=== PATIENT | female | born 1955 | race Caucasian/White ===

== ENCOUNTER 2023-10-31 08:56 | Emergency (ER) | payer MEDICARE, SELFPAY ==
[2023-10-31] VITALS (10 sets, daily range): BP systolic 106–139; BP diastolic 55–106; PULSE 67–102; RESP 14–24; TEMP 35.8–36.8; O2SAT 93–98; BMI 34.4
[2023-10-31] MEDS: Ondansetron 4 MG/2 ML Vial IV (09:15)
[2023-10-31] MEDS: HYDROmorphone 0.5 MG/0.5 ML SYRINGE IV (09:16)
--- NOTE | 2023-10-31 09:25 | RAD_ITS ---
STUDY: X-RAY - LEFT FOOT CLINICAL: Female, 67 years old. Fall TECHNIQUE: 2 view(s) of the foot. COMPARISON: None. FINDINGS: Calcaneal spurs.. Posterior dislocation of the tibial talar joint. Oblique fracture of the distal fibula. Normal visualized subtalar, talonavicular, calcaneocuboid, tarsal and tarsometatarsal articulations. Normal metatarsi. Normal metatarsophalangeal joint of the great toe. Normal tibial and fibular sesamoid bones. Normal interphalangeal joint of the great toe. Normal phalanges of the great toe. Normal second through fifth metatarsophalangeal joints. Normal interphalangeal joints and phalanges of the lesser toes. Soft tissue swelling. RAD/Foot 2 Views IMPRESSION: Posterior dislocation of the tibiotalar joint with soft tissue swelling. Oblique fracture of the distal fibula. Electronically Signed: Quentin Vivar MD at 10:14 EDT ,
--- NOTE | 2023-10-31 09:25 | RAD_ITS ---
STUDY: X-RAY - LEFT TIBIA AND FIBULA REASON FOR EXAM: Female, 67 years old. Pain following a recent fall. TECHNIQUE: 3 view(s) of the tibia and fibula were obtained. COMPARISON: None. FINDINGS: There is evidence of a displaced oblique fracture of the distal fibula with posterior subluxation of the tibial talar joint. Soft tissue swelling. RAD/Tibia & Fibula 2 Views IMPRESSION: Displaced oblique fracture of the distal fibula as well as disruption of the tibial talar joint with posterior subluxation. Soft tissue swelling. Electronically Signed: Quentin Vivar MD at 10:13 EDT ,
--- NOTE | 2023-10-31 09:25 | RAD_ITS ---
STUDY: X-RAY - LEFT ANKLE REASON FOR EXAM: Female, 67 years old. Fall TECHNIQUE: 2 view(s) of the ankle. COMPARISON: None. FINDINGS: Displaced oblique fracture of the distal fibula. Posterior dislocation of the tibiotalar articulation and disruption of the ankle mortise. Calcaneal spurs. The visualized subtalar, talonavicular, calcaneocuboid and tarsal articulations are normal. Soft tissue swelling. RAD/Ankle 2 Views IMPRESSION: Displaced oblique fracture of the distal fibula as well as posterior dislocation of the tibiotalar articulation and disruption of the ankle mortise. 2. Soft tissue swelling. Electronically Signed: Quentin Vivar MD at 10:15 EDT ,
--- NOTE | 2023-10-31 10:07 | NURSING ---
0940 NOT IN OFFICE 0943 LEFT MESSAGE ON PHONE [id number] FLIGHT RESERVATIONS MANAGER LEFT TEXT MESSAGE 1006 LEFT MESSAGE ON PHONE
--- NOTE | 2023-10-31 10:31 | EX.ED.DYSGE1 ---
HPI History of Present Illness Chief Complaint: Lower Extremity Injury Narrative Narrative: Patient is a 67-year-old female no known significant past medical history who presented to the emergency department chief complaint of left ankle pain. Patient states that she was letting a dog outside when she fell down and missed the step. States that she had immediate left ankle pain. States that she not hit her head did not pass out did not lose consciousness remembers entire event. Patient states that she did scrape on her right dorsal aspect of her foot but denies any pain over there. Rates her pain a 10 out of 10. Patient states that she last ate something at dinnertime last night did not eat breakfast. Does not know when her last tetanus shot was. [facility] Medical History Breast cyst Home Medications ?Medication ?Instructions ?Recorded ?Last Taken ?Type multivitamin 1 tab PO DAILY 10/01/23 Unknown History ascorbic acid (vitamin C) 1,000 mg 1,000 mg PO DAILY 30 days #30 tabs 10/31/23 Unknown Rx tablet,extended release (Vitamin C ER) calcium carbonate 500 mg-vitamin 1 tab PO DAILY 90 days #90 tabs 10/31/23 Unknown Rx D3 10 mcg (400 unit) tablet (Calcium 500 + D) cyclobenzaprine 5 mg tablet 5 mg PO TID PRN muscle spasm #14 10/31/23 Unknown Rx tabs docusate sodium 100 mg capsule 100 mg PO BID #30 caps 10/31/23 Unknown Rx (Colace) methylprednisolone 4 mg tablets in See Rx Instructions PO .COMPLEX 10/31/23 Unknown Rx a dose pack (Medrol (Rancho)) #21 tabs ondansetron 4 mg disintegrating 4 mg PO Q6H PRN nausea and 10/31/23 Unknown Rx tablet vomiting #20 tabs oxycodone-acetaminophen 5 mg-325 1 tab PO TID PRN pain 4 days #12 10/31/23 Unknown Rx mg tablet (Percocet) tabs Allergy/AdvReac Type Severity Reaction Status Date / Time No Known Allergies Allergy Verified 10/31/23 08:58 Family History Father Hyperlipemia Social History adopted: No household members: spouse number of children: 2 current occupational status: retired pets and animals: No sexually active: Yes Smoking Status: Never smoker alcohol intake: never substance use type: does not use caffeine: Yes (1) Type: carbonated beverages and tea frequency: 1-2 times per week seatbelt use: always do you feel safe at home: Yes ROS ROS ED ROS Narrative Constitutional: Denies any headaches, lightness, dizziness Eyes: Denies double vision blurry vision change in vision Cardiovascular: Denies chest pain or palpitations Respiratory: Denies cough shortness of breath Abdomen: Denies abdominal pain nausea vomit diarrhea Neurological: Denies numbness, weakness, tingling Musculoskeletal: Complains of left ankle pain as noted above Skin: Complains of scrapes to the dorsal aspect of the right foot as noted above and her left forearm and the dorsal aspect EXAM Physical Exam Narrative Exam Narrative: General: Patient lying in bed did appear to be uncomfortable Head: Atraumatic, normocephalic Eyes: PERRL bilateral, EOMI bilateral, no conjunctival injection noted Neck: Soft supple trachea midline Cardiovascular: Regular rate and rhythm no murmurs gallops rubs noted Respiratory: Clear to auscultation bilaterally no rales rhonchi wheeze noted Abdomen: Soft, nondistended, tender to palpation Musculoskeletal: Patient has obvious deformity to the left lower extremity in the ankle region Extremities: DP pulses +2/4 in the bilateral lower extremities, no pedal edema neuroexam Neurological: Patient following commands knew that she is at [facility] years 2023 sensation grossly intact Skin: Warm, dry, patient superficial abrasions noted to the dorsal aspect of the right foot and her left volar aspect of forearm no active bleeding Const Vital Signs: 10/31/23 08:58 10/31/23 09:56 10/31/23 10:35 Temperature 96.5 F L 97.8 F Temperature Source Temporal Pulse Rate 102 H 89 93 Pulse Rate [1 (Initial Baseline)] Pulse Rate [2] Pulse Rate [3] Pulse Rate [4] Pulse Rate [5] Pulse Rate [6] Respiratory Rate 18 16 17 Respiratory Rate [1 (Initial Baseline)] Respiratory Rate [2] Respiratory Rate [3] Respiratory Rate [4] Respiratory Rate [5] Respiratory Rate [6] Blood Pressure 138/67 H 127/70 H Blood Pressure [1 (Initial Baseline)] Blood Pressure [2] Blood Pressure [3] Blood Pressure [4] Blood Pressure [5] Blood Pressure [6] Blood Pressure Mean 90 Pulse Ox 98 98 97 Oxygen Delivery Method Room Air Room Air Nasal Cannula Oxygen Delivery Method [1 (Initial Baseline)] Oxygen Delivery Method [2] Oxygen Delivery Method [3] Oxygen Delivery Method [4] Oxygen Delivery Method [5] Oxygen Delivery Method [6] Oxygen Flow Rate (L/min) 3 Oxygen Flow Rate (L/min) [1 (Initial Baseline)] Oxygen Flow Rate (L/min) [2] Oxygen Flow Rate (L/min) [3] Oxygen Flow Rate (L/min) [4] Oxygen Flow Rate (L/min) [5] Oxygen Flow Rate (L/min) [6] 10/31/23 10:53 10/31/23 11:06 10/31/23 11:11 Temperature Temperature Source Pulse Rate Pulse Rate [1 (Initial Baseline)] 92 Pulse Rate [2] 91 Pulse Rate [3] 91 Pulse Rate [4] 91 Pulse Rate [5] 68 Pulse Rate [6] 73 Respiratory Rate Respiratory Rate [1 (Initial Baseline)] 14 Respiratory Rate [2] 15 Respiratory Rate [3] 19 H Respiratory Rate [4] 24 H Respiratory Rate [5] 17 Respiratory Rate [6] 18 Blood Pressure Blood Pressure [1 (Initial Baseline)] 127/70 H Blood Pressure [2] 139/80 H Blood Pressure [3] 132/74 H Blood Pressure [4] 112/82 H Blood Pressure [5] 112/87 H Blood Pressure [6] 115/90 H Blood Pressure Mean Pulse Ox Oxygen Delivery Method Nasal Cannula Nasal Cannula Oxygen Delivery Method [1 (Initial Baseline)] Nasal Cannula Oxygen Delivery Method [2] Nasal Cannula Oxygen Delivery Method [3] Nasal Cannula Oxygen Delivery Method [4] Nasal Cannula Oxygen Delivery Method [5] Nasal Cannula Oxygen Delivery Method [6] Nasal Cannula Oxygen Flow Rate (L/min) 4 2 Oxygen Flow Rate (L/min) [1 (Initial Baseline)] 3 Oxygen Flow Rate (L/min) [2] 4 Oxygen Flow Rate (L/min) [3] 4 Oxygen Flow Rate (L/min) [4] 4 Oxygen Flow Rate (L/min) [5] 4 Oxygen Flow Rate (L/min) [6] 4 10/31/23 12:00 Temperature Temperature Source Pulse Rate 67 Pulse Rate [1 (Initial Baseline)] Pulse Rate [2] Pulse Rate [3] Pulse Rate [4] Pulse Rate [5] Pulse Rate [6] Respiratory Rate 15 Respiratory Rate [1 (Initial Baseline)] Respiratory Rate [2] Respiratory Rate [3] Respiratory Rate [4] Respiratory Rate [5] Respiratory Rate [6] Blood Pressure 106/68 Blood Pressure [1 (Initial Baseline)] Blood Pressure [2] Blood Pressure [3] Blood Pressure [4] Blood Pressure [5] Blood Pressure [6] Blood Pressure Mean 80 Pulse Ox 94 Oxygen Delivery Method Room Air Oxygen Delivery Method [1 (Initial Baseline)] Oxygen Delivery Method [2] Oxygen Delivery Method [3] Oxygen Delivery Method [4] Oxygen Delivery Method [5] Oxygen Delivery Method [6] Oxygen Flow Rate (L/min) Oxygen Flow Rate (L/min) [1 (Initial Baseline)] Oxygen Flow Rate (L/min) [2] Oxygen Flow Rate (L/min) [3] Oxygen Flow Rate (L/min) [4] Oxygen Flow Rate (L/min) [5] Oxygen Flow Rate (L/min) [6] MDM MDM MDM Narrative Medical decision making narrative: Patient is a 67-year-old female who presented to the emerged part with chief complaint of mechanical fall with left ankle pain. Patient blood work performed here on the differential diagnose includes but not limited to to bimalleolar fracture, dislocation, trimalleolar fracture. Once workup is obtained reviewed she will be reevaluated. Patient be given Dilaudid, Zofran. Patient's x-ray of her ankle was reviewed and showed displaced oblique fracture of the distal fibula as well as posterior dislocation of the tibiotalar articulation and disruption of the ankle more T soft tissue swelling noted. Patient's foot x-ray showed the posterior dislocation of the tibiotalar joint once again and the oblique fracture of the distal fibula. Tibia-fibula showed the exact same thing no other no other acute findings. Patient underwent procedural sedation see procedure note for separate details no complications noted. Patient tolerated this well. Splint was applied. Patient had Webril applied to the left lower extremity followed by plaster and a Eddy wrap afterwards. Patient remained neurovascularly intact after splint application. Did discuss the case with on-call foot and ankle surgeon Dr. Merritt who came down and evaluated the patient at bedside. He reviewed the images and states that the reduction looked adequate. I did review the postreduction films and showed a satisfactory reduction as well. Per Dr. Merritt's recommendations he was requesting prescriptions be sent for Percocet, cyclobenzaprine, vitamin C, Medrol Dosepak, aspirin daily, vitamin C, Colace, Os-Masood which were all sent to her the pharmacy. She was encouraged to follow-up with him on Friday he wants to see the patient in the office. She was encouraged to remain nonweightbearing on that extremity. She is encouraged return with worsening symptoms or any concerns. Patient was observed post sedation here and has had no complications and is back to her baseline feeling well. She is agreeable this plan all question concerns answered she was discharged home in stable condition. Radiography Diagnostic Testing: Clinical Impression(s) from Imaging Studies Ankle X-Ray 10/31/23 09:25 IMPRESSION: Displaced oblique fracture of the distal fibula as well as posterior dislocation of the tibiotalar articulation and disruption of the ankle mortise. 2. Soft tissue swelling. Electronically Signed: Quentin Vivar MD at 10:15 EDT , Foot X-Ray 10/31/23 09:25 IMPRESSION: Posterior dislocation of the tibiotalar joint with soft tissue swelling. Oblique fracture of the distal fibula. Electronically Signed: Quentin Vivar MD at 10:14 EDT , Tibia/Fibula X-Ray 10/31/23 09:25 IMPRESSION: Displaced oblique fracture of the distal fibula as well as disruption of the tibial talar joint with posterior subluxation. Soft tissue swelling. Electronically Signed: Quentin Vivar MD at 10:13 EDT , Ankle X-Ray 10/31/23 11:05 IMPRESSION: Satisfactory reduction. Electronically Signed: Quentin Vivar MD at 11:47 EDT , Procedures Procedural Sedation reduction: Consent Signed: Yes Any Problems With Anesthesia: No You/Your family experience fever (hyperthermia) w/anesthesia: No Sedation medication: Propofol Dose: 60 Route: IV Total Moderate Sedation Units: 14 Maliampati Score: Class II ASA Classification: I Comment:: no complications Discharge Plan Triage Chief Complaint: Lower Extremity Injury ED Provider: Juan Corona Dx/Rx/DC Orders Clinical Impression: Fibula fracture, Closed dislocation of ankle Prescriptions: New oxycodone-acetaminophen [Percocet] 5-325 mg tablet 1 tab PO TID PRN (Reason: pain) 4 Days Qty: 12 0RF methylprednisolone [Medrol (Rancho)] 4 mg tablets,dose pack See Rx Instructions .ROUTE .COMPLEX Qty: 21 0RF Rx Instructions: for 6 days ondansetron 4 mg tablet,disintegrating 4 mg PO Q6H PRN (Reason: nausea and vomiting) Qty: 20 0RF cyclobenzaprine 5 mg tablet 5 mg PO TID PRN (Reason: muscle spasm) Qty: 14 0RF Vitamin C 1,000 mg tablet extended release 1,000 mg PO DAILY 30 Days Qty: 30 0RF calcium carbonate-vitamin D3 [Calcium 500 + D] 500 mg-10 mcg (400 unit) tablet 1 tab PO DAILY 90 Days Qty: 90 0RF docusate sodium [Colace] 100 mg capsule 100 mg PO BID Qty: 30 0RF No Action multivitamin Tablet 1 tab PO DAILY Primary Care Provider: Greg Zavala Referrals: Greg Zavala PA [Primary Care Provider] - Eldon Merritt DPM [[facility] Staff - Active Staff] - Activity Restrictions/Additional Instructions: Use Tylenol and ibuprofen [id number] for pain control. Take aspirin daily 81 mg. Follow-up with Dr. Merritt in the outpatient setting. Use the other medications for severe pain as we discussed here. Return with worsening symptoms or any other concerns. Print Language: [place] Citizen Disposition Disposition: Home, Self Care
--- NOTE | 2023-10-31 10:51 | NURSING ---
1021 DR OLIVEIRA IN SURGERY 1058 SENT TO PHONE. NO ANSWER
--- NOTE | 2023-10-31 11:05 | RAD_ITS ---
STUDY: X-RAY - LEFT ANKLE REASON FOR EXAM: Female, 67 years old. Post reduction TECHNIQUE: 3 view(s) of the ankle. COMPARISON: Comparison made with prior study done earlier today. FINDINGS: Satisfactory reduction of the distal fibular fracture as well as the tibial talar joint. RAD/Ankle min 3 Views IMPRESSION: Satisfactory reduction. Electronically Signed: Quentin Vivar MD at 11:47 EDT ,
[2023-10-31] MEDS: Propofol 200 MG/20 ML Vial IV BOLUS (11:11)
[2023-10-31] MEDS: fentaNYL 100 MCG/2 ML Ampul 50 MCG IV (11:12)
--- NOTE | 2023-10-31 11:12 | NURSING ---
DR OLIVEIRA IN ROOM
== END 2023-10-31 13:56 | disposition home or self-care (01) ==
PROVIDERS: Emergency Provider Emergency Medicine; PCP Physician Assistant; Visit Provider Emergency Medicine
DX: S82.432A Displaced oblique fracture of shaft of left fibula, initial encounter for closed fracture (principal); W10.9XXA Fall (on) (from) unspecified stairs and steps, initial encounter
CPT/HCPCS: 73590; 73600; 73610; 73620; 96374; 96375; 96376; 99152; 99283; J7030; A4216; J2405

== ENCOUNTER → 2023-11-17 | Outpatient (CLI) | payer MEDICARE, SELFPAY ==
--- NOTE | 2023-11-17 14:56 | CT_ITS ---
EXAM: CT LEFT LOWER EXTREMITY WITHOUT INTRAVENOUS CONTRAST, ANKLE CLINICAL INDICATION: LT ANKLE FRACTURE TECHNIQUE: Helically acquired images were obtained of the left ankle without intravenous contrast. 2-D reformats were performed by the technologist. CTDIvol = ( 15.35 ) mGy, DLP = ( 465.06 ) mGycm This CT exam was performed using one or more of the following dose reduction techniques: automated exposure control, adjustment of the mA and/or kV according to patient size, and/or use of iterative reconstruction technique. COMPARISON: October 31, 2023 exam FINDINGS: BONES/JOINTS: Acute nondisplaced fracture involving the metaphysis of the distal fibula. There is a remote osteochondral lesion/lucency measuring 4 mm at the medial talar dome. There there is a mildly displaced acute comminuted fracture at the medial malleolus. Ankle mortise appears intact. Small old fracture fragments which are corticated and located near the the inferior process of the medial malleolus. No dislocation. SOFT TISSUES: Unremarkable. No soft tissue swelling or gas. No radiopaque foreign body. CT/Extremity Lower without Contra IMPRESSION: 1. Acute nondisplaced fracture involving the metaphysis of the distal fibula. 2. Mildly displaced acute comminuted fracture at the medial malleolus. 3. Old osteochondral defect at the medial talar dome. Electronically Signed: Lamont Keane MD at 0:19 EDT ,
== END | disposition home or self-care (01) ==
PROVIDERS: PCP Physician Assistant; Referring Provider Podiatrist Foot & Ankle Surgery; Visit Provider Podiatrist Foot & Ankle Surgery
DX: S82.62XA Displaced fracture of lateral malleolus of left fibula, initial encounter for closed fracture (principal)
CPT/HCPCS: 73700

== ENCOUNTER 2023-11-24 10:57 | Outpatient (CLI) | payer MEDICARE, SELFPAY ==
[2023-11-24 12:08] LABS: Absolute Lymphocyte Count 2.06 X10^3/uL (0.83-4.51); Basophil# 0.03 X10^3/uL; Basophil% 0.5 % (0-1); Eosinophils% 1.7 % (0-5); Hematocrit 41.6 % (37-47); Hemoglobin 13.3 g/dL (12.0-15.0); Lymphocyte # 2.06 X10^3/ul (0.83-4.51); Lymphocyte % 34.6 % (19-41); Mean Corpuscular Hgb 29.8 pg (27.0-32.0); Mean Corpuscular Volume 93.1 fL (81-99); Monocyte% 11.8 % (0-10); NRBC Flagged by Analyzer 0 % (0-5); Neutrophil # 3.02 X10^3/uL (2.7-7.7); Neutrophil % 50.7 % (47-70); Platelet Count 317 K/mm3 (150-450); RBC Distribution Width CV 13.5 % (11.6-14.6); RBC Distribution Width SD 46.3 fl (35.1-43.9); Red Blood Count 4.47 M/mm3 (4.2-5.4)
[2023-11-24 13:06] LABS: ALB/GLOB Ratio 1.1 RATIO (0.9-2.4); AST(SGOT) 20 U/L (15-37); Alanine Aminotransfer ALT/SGPT 27 U/L (13-56); Albumin, Serum 4.1 g/dL (3.2-5.0); Alkaline Phosphatase 75 U/L (45-117); Anion Gap 7 (5-15); BUN 20 mg/dL (7-18); BUN/Creat Ratio 19.2 RATIO (10-20); Calcium,Total 9.6 mg/dL (8.5-10.1); Chloride 104 mmol/L (98-107); Cholesterol 238 mg/dL (200); Creatinine, Serum 1.04 mg/dL (0.55-1.02); EST Glomerular Filtration Rate 56 mL/min (>60); Est Glom Filt Rate - Afr Amer 68 mL/min (>60); Globulin 3.6 g/dL (2.2-4.2); Glucose 100 mg/dL (74-106); High Density Lipoprotein 44 mg/dL; Potassium 4.2 mmol/L (3.5-5.1); Protein, Total 7.7 g/dL (6.4-8.2); Sodium Level 139 mmol/L (136-145); Triglycerides 194 mg/dL; Very Low Density Lipoprotein 39 mg/dL (5-40)
== END 2023-11-24 23:59 | disposition home or self-care (01) ==
PROVIDERS: PCP Physician Assistant; Referring Provider Physician Assistant; Visit Provider Physician Assistant
DX: E66.9 Obesity, unspecified (principal); Z68.34 Body mass index [BMI] 34.0-34.9, adult
CPT/HCPCS: 36415; 80053; 80061; 85025

== ENCOUNTER 2023-11-28 09:00 | Day surgery (SDC) | payer MEDICARE, SELFPAY ==
[2023-11-24 12:58] LABS: Vitamin D,25 Hydroxy 30.6 ng/mL
[2023-11-24 13:32] LABS: Magnesium 2.2 mg/dL (1.6-2.6)
[2023-11-24 14:13] LABS: Hemoglobin A1c 5.8 % (3.8-5.6)
[2023-11-28] VITALS (11 sets, daily range): BP systolic 116–137; BP diastolic 68–102; PULSE 69–92; RESP 12–18; TEMP 36.1–36.6; O2SAT 93–100; BMI 31.0
--- NOTE | 2023-11-28 09:26 | PCM.PRE.AN2 ---
ASA Classification* ASA Classification ASA Classification: 2 Assessment & Plan Anesthesia* Anesthesia Assessment Anesthesia Assessment: Discussed sedation and/or anesthesia options, risks, benefits, and alternatives with patient/parents/legal guardian/POA. Questions invited. The patient/parents/legal guardian/POA seems to understand and agrees to proceed with anesthesia plan. Reviewed the physical assessment, medical history, allergy history and patient home medications list prior to surgery/procedure/anesthetic and documented any changes. Performed airway and anesthesia risk assessments. Anesthesia Type Anesthesia Type: General (see written pre anesthesia record for full assessment) and Block (see written pre anesthesia record for full assessment) Anesthesia Focused Assessment* Airway Assessment Mouth opens: >3 cm Mallampati Score: II Focused Labs Anesthesia Preop lab: CBC WBC 6.0 K/mm3 (4.4-11.0) 11/24/23 11:00 RBC 4.47 M/mm3 (4.2-5.4) 11/24/23 11:00 Hgb 13.3 g/dL (12.0-15.0) 11/24/23 11:00 Hct 41.6 % (37-47) 11/24/23 11:00 Plt Count 317 K/mm3 (150-450) 11/24/23 11:00 CHEMISTRY Potassium 4.2 mmol/L (3.5-5.1) 11/24/23 11:00 Sodium 139 mmol/L (136-145) 11/24/23 11:00 Magnesium 2.2 mg/dL (1.6-2.6) 11/24/23 11:00 BUN 20 mg/dL (7-18) H 11/24/23 11:00 Creatinine 1.04 mg/dL (0.55-1.02) H 11/24/23 11:00 Glucose 100 mg/dL (74-106) 11/24/23 11:00 COAG Pre-Assessment Diagnosis/Proposed Procedure Planned Operative Procedure(s): (L) ORIF left ankle fracture with stress views and syndesmotic repair Anesthesia History Anesthesia History - community marketing manager: Anesthesia History - community marketing manager Hx Hospitalization No 11/21/23 11:07 Any Problems With Anesthesia [ No 10/31/23 13:15 reduction] Any Problems With Anesthesia No 11/21/23 11:07 Cholinesterase deficiency No 11/21/23 11:07 You/Your Family Experience No 11/21/23 11:07 fever (hyperthermia) with Relationship Recent Exposure to Contagious Disease Does patient have nerve No 11/21/23 11:07 stimulator Patient instructed to have device shut off --Does patient have Pacemaker or ICD? When Was Last Pacemaker Check QUESTION #4 FULL TEXT: You/Your Family Experience fever (hyperthermia) with Anesthesia Last Oral Intake Last Oral intake: Last Oral Intake NPO since Meds taken in AM with sips of water? Meds patient instructed to take am of surgery PONV PONV - community marketing manager: PONV - community marketing manager Female Yes 11/21/23 11:07 HX of Motion Sickness No 11/21/23 11:07 HX of N/V After Surgery No 11/21/23 11:07 Non-Smoker Yes 11/21/23 11:07 Duration of Surgery greater Yes 11/21/23 11:07 than 60 minutes Number of Risk Factors 3 11/21/23 11:07 PONV Score Moderate Risk 11/21/23 11:07 Height & Weight Height & Weight: Anesthesia: Height & Weight Height 5 ft 7 in 11/27/23 09:28 Weight: 89.811 kg 11/27/23 09:28 Respiratory Assessment Respiratory Assessment - community marketing manager: Respiratory Tract Infection Hx - community marketing manager Hx Respiratory Tract Infection No 11/21/23 11:07 STOP Sleep Apnea STOP Sleep Apnea - community marketing manager: STOP Sleep Apnea - community marketing manager Hx Hypertension No 11/21/23 11:07 Hx Sleep Apnea No 11/21/23 11:07 CPAP BIPAP Do you snore loudly (louder No 11/21/23 11:07 than talking or can be heard Do you often feel tired/ No 11/21/23 11:07 fatigued/ sleepy during daytime? Has anyone observed you stop No 11/21/23 11:07 breathing during sleep? STOP Results Negative 11/21/23 11:07 QUESTION #5 FULL TEXT : Do you snore loudly (louder than talking or can be heard through closed doors)? Tobacco Use History Tobacco Use History - community marketing manager: Tobacco Use History - community marketing manager Tobacco Use Smoking Status Never smoker 11/21/23 11:07 Hx Tobacco Use No 11/21/23 11:07 Years Smoking Packs Smoked per Day Smoking Cessation Date was within the last 15 years Hx Smoking Cessation Date Hx Smoking Cessation Counseling Hematologic Medial History Hematologic Hx - community marketing manager: Hematologic Medical Hx - city dispatcher Hx of Blood Transfusion No 11/21/23 11:07 Hx of Transfusion in last 3 No 11/21/23 11:07 Months Date of Last Transfusion (if within last 3 months) Ever experience any problems No 11/21/23 11:07 with transfusion(s)? Specify any problems Hx of Preganancy in last 3 N/A 11/21/23 11:07 Months Nurse Filling Out Transfusion NBUCHER 11/21/23 11:07 & Questions: Date: 11/21/23 11/21/23 11:07 Time: 11:07 11/21/23 11:07 Patient unable to answer at this time (ie. confused, unrespo /Reproduction History /Reproductive History - community marketing manager: /Reproductive Hx- community marketing manager Hx Now No 11/21/23 11:07 Gestational Age (in weeks): EDC: Hx Hx Para Hx Section SAB No 11/21/23 11:07 Active Medications Active Medications: Current Medications Generic Name Dose Route Start Last Admin Trade Name Freq PRN Reason Stop Dose Admin Acetaminophen 1,000 mg 11/28/23 10:30 Acetaminophen 500 Mg Tablet PO 11/28/23 10:31 X1 ONE Gabapentin 600 mg 11/28/23 10:30 Gabapentin 600 Mg Tablet PO 11/28/23 10:31 X1 ONE Cefazolin Sodium 2 gm/ Sodium 110 mls @ 150 mls/hr 11/28/23 10:30 Chloride IV 11/28/23 11:13 PREOP ONE Magnesium Sulfate 1 gm/ 102 mls @ 408 mls/hr 11/28/23 10:30 Dextrose IV 11/28/23 10:44 X1 ONE Lactated Ringer's 1,000 mls @ 15 mls/hr 11/28/23 09:15 IV .Q48H CLAU Insulin Human Lispro 1 - 6 unit 11/28/23 10:30 Insulin Lispro 100 Unit/Ml Insuln.Pen SC 11/28/23 18:00 Q4H PRN PRN BG>/= 180, SEE PROTOCOL Protocol PFSH Medical History Wears hearing aid Loss of hearing Wears dentures Arthritis Non-smoker Breast cyst Home Medications ?Medication ?Instructions ?Recorded ?Last Taken ?Type multivitamin 1 tab PO DAILY 10/01/23 Unknown History ascorbic acid (vitamin C) 1,000 mg 1,000 mg PO DAILY 30 days #30 tabs 10/31/23 Unknown Rx tablet,extended release (Vitamin C ER) calcium 500 mg (as 1 tab PO DAILY 90 days #90 tabs 10/31/23 Unknown Rx carbonate)-vitamin D3 10 mcg (400 unit) tablet (Calcium 500 + D) Allergy/AdvReac Type Severity Reaction Status Date / Time No Known Allergies Allergy Verified 11/21/23 10:56 Family History Father Hyperlipemia Social History adopted: No household members: spouse number of children: 2 current occupational status: retired pets and animals: No sexually active: Yes Smoking Status: Never smoker alcohol intake: never substance use type: does not use caffeine: Yes (1) Type: carbonated beverages and tea frequency: 1-2 times per week seatbelt use: always do you feel safe at home: Yes Review of Systems (Anesthesia) ROS Narrative System reviewed and no additional complaints, except as documented.
--- NOTE | 2023-11-28 09:30 | RAD_ITS ---
STUDY: X-RAY - LEFT ANKLE REASON FOR EXAM: Female, 67 years old. ORIF LEFT ANKLE TECHNIQUE: 3 limited intraoperative view(s) of the ankle. COMPARISON: None. FINDINGS: 3 limited intraoperative views were obtained as the patient is undergoing open reduction internal fixation of a bimalleolar left ankle fracture. Alignment at the fracture sites is anatomic, follow-up recommended to a complete osseous union RAD/Ankle 2 Views IMPRESSION: No intraoperative complications noted during open reduction internal fixation of a left ankle fracture. Follow-up recommended to assure complete osseous union Electronically Signed: Ramses Meyer MD at 19:37 EDT ,
[2023-11-28] MEDS: Magnesium 1 GM over 15 mins IV (09:50)
[2023-11-28] MEDS: Lactated Ringers 1,000 ML 15 ML IV (09:50)
[2023-11-28] MEDS: Gabapentin 600 MG Tablet PO (09:50)
[2023-11-28] MEDS: Acetaminophen 500 MG Tablet 1000 MG PO (09:51)
[2023-11-28] MEDS: Insulin Lispro 100 UNIT/ML INSULN.PEN SC (10:16)
[2023-11-28 10:37] LABS: Bedside Glucose 182 mg/dL (74-106)
--- NOTE | 2023-11-28 10:39 | OP.PCM_ITS ---
Problems Associated Problem List Diagnoses (1) Displaced fracture of lateral malleolus of left fibula, initial encounter for closed fracture: (2) Subluxation of left ankle joint, initial encounter: (3) Dislocation of left ankle joint, initial encounter: (4) Pain in left leg: Report of Operation Date of Procedure: 11/28/23 Pre-Operative Diagnosis: 1. Dislocated ankle fracture, left lower extremity plan 2. Subluxation of ankle, left lower extremity 3. Dislocated ankle fracture, left lower extremity 4. Pain, left leg Post-Operative Diagnosis: Same as preoperative diagnosis Surgery/Procedure Performed:: 1. Open reduction internal fixation, left ankle fracture 2. Stress views, left ankle 3. Repair of syndesmosis, left ankle Description of Surgical Findings:: 1. Mildly superior dislocation of the capital fragment of the distal fibula, left lower extremity. Next line 2. Had a rebreak the capital fragment of the fibula to allow the capital fragment to be out to length. Once out the length lobster claws were used to realign the oblique fracture. 3. Anatomic reduction of left lower extremity ankle fracture. Surgeon: Eldon Merritt environmental field office manager: Pamella Bliss Type of Anesthesia: Block,Regional, General and Local Anesthesiologist: Armando Tucker Special Medications: 1. Popliteal block provided by anesthesia, left lower extremity Specimen's removed: None Drains: None Estimated Blood Loss (mL): 15 mL Fluids Replaced: 600 mL Description of Procedure: Indications For Operation: Mrs. Olivia is a 67-year-old female who was admitted to [facility] for left lower extremity open reduction internal fixation ankle fracture. Patient was initially seen in the emergency department where she ended up with a dislocated ankle fracture to left lower extremity approximately 3-1/2 weeks ago. Patient was closed reduced using conscious sedation. After reduction the patient was placed in a AO splint and reported to my office for consultation evaluation. Due to the nature of the dislocated ankle it would was educated to the patient that she would need to move forward with open reduction total fixation to allow for anatomic healing of the left lower extremity ankle and foot. Surgical consultation in office was obtained, chart review and consent was signed. Due to initial presentation of the dislocated ankle fracture to left lower extremity it was deemed necessary to take the patient back to the operating room and to perform the above procedure to fix her left ankle fracture and syndesmosis. The nature of the problem, anticipated procedures, postop recovery/convalences and risk/complications include but not limited to infection, wound healing complications, digital amputation, hypertrophic scarring, numbness, tingling, chronic pain, CRPS, over and under correction, recurrence of deformity, DVT and or PE and the need for further surgery have been discussed in great detail with the patient. All questions have been answered to the patient's satisfaction. There are no guarantees given as to the outcome of the procedure. Description of Procedure: Under mild sedation, the patient was brought into the operating room and placed on the operating table in supine position. Once the patient was under general anesthesia with laryngeal mask airway, the left lower extremity was blocked using approximately 10 cc0.5% Marcaine plain to the left lower extremity saphenous nerve, popliteal block was performed by anesthesia please see anesthesia notes for further detail. Next, a well-padded thigh tourniquet was applied to the left lower extremity. Next, the left lower extremity was prepped and draped in normal aseptic manner. Next, a timeout was then undertaken verifying the correct patient, extremity, visibility of preoperative markings, availability of the equipment. Next, attention was directed to the left lower extremity. Using a 6 inch Esmarch, left lower extremity was exsanguinated and elevated to 60 degrees for 1 minute. 1. Open reduction internal fixation, left ankle fracture Next, attention was directed to the left lower extremity. Using large C-arm fluoroscopy, the ankle joint syndesmosis and fibula were marked out prior to incision. Once all landmarks were obtained, a large full-thickness incision down to bone to the lateral ankle over the fibula was performed. Continued sharp dissection was carried down the distal and proximal aspect of the fracture line to the fibula. The fracture line was identified and showed evidence of superior translation. There is evidence of trabeculation across the fracture site however there was evidence of superior dislocation and a deemed necessary at this time to rebreak the fracture line to move the distal fibula back to a more anatomic position and get it out to length. Using an osteotome and mallet the healing fracture was rebroken and a [place] elevator was used to dislocate the distal capital fragment. The rebroken distal fibula was flushed with coping vickey of normal saline. Using lobster claws, the fracture line was reapproximated down to anatomic position allowing for good apposition prior to interfrag screw. Using [employer] hardware a 2.7 millimeter screw was placed perpendicular to the fracture line using AO technique. Next, using [employer] ankle fracture set, a large anatomical plate was placed on the fibula and position was checked not just clinically but with large C-arm fluoroscopy. The plate was held in place with threaded BB tacks. A combination of 3.5 mm locking and nonlocking screws were placed distal and proximal to the fracture line. Next, the incision was flushed with copious normal saline. 2. Stress views, left ankle Next, stress views were obtained of the left lower extremity using large live C arm fluoroscopy. Dorsiflexion external rotating the ankle showed evidence of gapping of the syndesmosis. Due to this evidence we will move forward with syndesmotic repair. 3. Repair of syndesmosis, left ankle Next, using a smooth large Steinmann pin, the guide hole for the tight rope was obtained throwing the large smooth Steinmann pin from posterior lateral to anterior medial. Positioning of the Steinmann pin was confirmed with large C- arm fluoroscopy and lateral view that the Steinmann pin was in the middle of the tibia at this time. A type rope was placed per the order desk clerk's recommendation with the rep in the room. There was evidence of realignment of the tibial fibular joint that was noted on the operating room table. Next, the incision on the lateral and medial side were flushed with copious normal saline. The ankle was placed through range of motion and showed no evidence of catching and showed only evidence of gliding with no concern of hardware in the joint. Dorsiflexion external rotation was obtained and normal tib-fib overlap was noted. The medial incision skin was reapproximated closed using 3-0 nylon in simple interrupted suture technique. The deep layer on the lateral incision was reapproximated closed with buried 3-0 Monocryl. The left thigh tourniquet was deflated at this time and reperfusion was instantly noted to the left lower extremity. Subcutaneous layer was reapproximated closed using 3-0 Monocryl and running suture technique. The skin was reapproximated and closed with sahara. Next, 2 cc of via flow was injected into the incision to help with inflammation and decrease adhesions. The left lower extremities were cleaned and patted dry. All incisions were dressed with Betadine soaked Adaptic, dry sterile dressing and double layer Pavon AO splint at 90 degrees was applied to left lower extremity. The patient tolerated the procedure and anesthesia well and apparent satisfactory condition and was transported to the PACU for further monitoring prior to discharge home. Vital signs stable and vascular status intact to all digits bilateral. Post Operative Plan: Weightbearing: Nonweightbearing to left lower extremity with assistive knee sc ooter. Full weightbearing right lower extremity. Antibiotics: 2 g Ancef through the IV DVT Prophylaxis: 81 mg aspirin Alston: None Dressing: Betadine soaked Adaptic, for dry sterile dressing, double layer Pavon AO splint to left lower extremity at 90 degrees. X-Rays: Post-operative films taken on the operating room. Pain Medication: Percocet 5/325. Flexeril 10 mg Follow-up: Patient will follow-up 1 week post discharge in private office with Dr. Merritt. Grafts/Implants Used: Right medical ankle fracture set with syndesmotic ropes. 2cc viaflow Complications None Admit VTE Documentation VTE Present on Admission: No VTE Mechan Device Prophylaxis: SCD's VTE Pharm Prophylaxis ordered?: Yes
[2023-11-28] MEDS: Cefazolin 2 GM in 0.9% Normal Saline (100mL Bag) 100 ML IV (10:40)
[2023-11-28] MEDS: Bupivacaine Mpf 0.5% 30 ML VIAL (12:20)
--- NOTE | 2023-11-28 12:34 | PCM.POST.ANE ---
Anesthesia: Postop Eval I Current Vital Signs Temperature: 97 F Pulse Rate: 86 Blood Pressure: 122/68 Respiratory Rate: 16 Pulse Ox: 95 Oxygen Delivery Method: Room Air Assessment Airway patent: Yes Spontaneous unlabored respirations: Yes Mental status: Awake and Calm nausea: No Vomiting: No Anesthesia Complication: No Fluid Hydration Crystalloid volume administer (ml): 600 Total IV fluid infused: 600 Progress Note Anesthesia document: Postop Eval 1 completed: Yes
[2023-11-28 14:01] LABS: Bedside Glucose 109 mg/dL (74-106)
--- NOTE | 2023-11-28 14:30 | POSTOPAN2_ITS ---
Anesthesia Postop Eval I Sum Postop Eval Completion status Anesthesia document: Postop Eval 1 completed: Yes Anesthesia Postop Eval I Summary Anesthesia Postop Eval I Summary: Anesthesia Postop Eval I: Assessment Summary Airway patent Yes 11/28/23 12:35 TIRE BUILDER [email or web address] [email or web address] Spontaneous unlabored Yes 11/28/23 12:35 TIRE BUILDER [employer] [email or web address] respirations Mental status Awake,Calm 11/28/23 12:35 TIRE BUILDER HEAV[employer] [email or web address] nausea No 11/28/23 12:35 TIRE BUILDER HEAV[employer] [email or web address] Vomiting No 11/28/23 12:35 TIRE BUILDER HEAVY [email or web address] Anesthesia Postop Eval I: Fluid Summary Crystalloid volume administer 600 11/28/23 12:35 TIRE BUILDER [email or web address] [email or web address] (ml) Colloids volume administered ( ml) Blood Product volume administered (ml) Total IV fluid infused 600 11/28/23 12:35 TIRE BUILDER [email or web address] [email or web address] Anesthesia Postop Eval I: Summary Notes Anesthesia Complication No 11/28/23 12:35 TIRE BUILDER [email or web address] [email or web address] Anesthesia Complication Comment: Post-operative progress note Anesthesia: Postop Eval II Evaluation Mental status: Awake Pain Level: 0 nausea: No Vomiting: No
--- NOTE | 2023-11-28 14:30 | PCM.POSTANE2 ---
Anesthesia Postop Eval I Sum Postop Eval Completion status Anesthesia document: Postop Eval 1 completed: Yes Anesthesia Postop Eval I Summary Anesthesia Postop Eval I Summary: Anesthesia Postop Eval I: Assessment Summary Airway patent Yes 11/28/23 12:35 INVESTMENT [email or web address] Spontaneous unlabored Yes 11/28/23 12:35 INVESTMENT [email or web address] respirations Mental status Awake,Calm 11/28/23 12:35 INVESTMENT [email or web address] nausea No 11/28/23 12:35 INVESTMENT [email or web address] Vomiting No 11/28/23 12:35 INVESTMENT [email or web address] Anesthesia Postop Eval I: Fluid Summary Crystalloid volume administer 600 11/28/23 12:35 INVESTMENT [email or web address] (ml) Colloids volume administered ( ml) Blood Product volume administered (ml) Total IV fluid infused 600 11/28/23 12:35 INVESTMENT [email or web address] Anesthesia Postop Eval I: Summary Notes Anesthesia Complication No 11/28/23 12:35 INVESTMENT [email or web address] Anesthesia Complication Comment: Post-operative progress note Anesthesia: Postop Eval II Evaluation Mental status: Awake Pain Level: 0 nausea: No Vomiting: No
== END 2023-11-28 16:11 | disposition home or self-care (01) ==
LOC: SDC 09:13 → AC 09:13
PROVIDERS: PCP Physician Assistant; Referring Provider Podiatrist Foot & Ankle Surgery; Visit Provider Podiatrist Foot & Ankle Surgery
PROC: (CPT 27792; principal; 2023-11-28 10:10)
DX: S82.62XA Displaced fracture of lateral malleolus of left fibula, initial encounter for closed fracture (principal); S93.02XA Subluxation of left ankle joint, initial encounter; W19.XXXA Unspecified fall, initial encounter; E66.9 Obesity, unspecified; Z68.29 Body mass index [BMI] 29.0-29.9, adult
CPT/HCPCS: 27792; 27829; 01480; 64447; 73600; 76000; 80307; 82306; 82962; 83036; 83735; C1713; J7120; J2405; J3475

== ENCOUNTER → 2024-11-12 | Outpatient (CLI) | payer MEDICARE, SELFPAY ==
--- NOTE | 2024-11-12 06:12 | CT_ITS ---
PROCEDURE: EXTREMITY LOWER WITHOUT CONTRA 11/12/2024 REASON FOR EXAM: PAIN DUE TO INTERNAL ORTHOPEDIC PROSTHETIC DEVICES, IMPLANTS AND TECHNIQUE: Procedure Code: CTELWO Modality: CT Procedure: EXTREMITY LOWER WITHOUT CONTRA Coronal and Sagittal reconstruction series were provided. CONTRAST: None One or more dose reduction techniques were used (e.g., Automated exposure control, adjustment of the mA and/or kV according to patient size, use of iterative reconstruction technique). RADIATION DOSE SUMMARY: DLP: 408 mGycm COMPARISON: November 17, 2023 FINDINGS: There is hardware fixation of the distal fibula with plate and screws which appear intact and aligned. A cortex is well corticated. There is a 0.5 cm corticated osteochondral fragment in the medial joint space at the deltoid. No acute fracture or dislocation is identified. 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 Benign-appearing calcaneal spurs are noted. The Achilles shadow appears intact. No soft tissue mass or adenopathy is identified. There is no visible atherosclerosis. CT/Extremity Lower without Contra IMPRESSION: The distal fibula fracture appears well corticated, with intact hardware. Reading Location: [facility]
--- OUTSIDE RECORDS SUMMARY | 2024-11-12 06:22 | XMS RPT_ITS | CCD ---
Author Organization [facility] CliniSyny Care Team Providers Care Radiology Supervisor Name Role Phone MALCOM CHAUHAN, DR HURST Primary Care Physician [phone] MALCOM CHAUHAN, DR HURST Attending Unavailable MALCOM DO, DR HURST Primary Care Unavailable LEONCIO PEOPLESOFT HR DEVELOPER-HEAT TREAT FURNACE OPERATOR, CARLOTA Weller Attending Unavai lable MALCOM DO, DR HURST Primary Care Unavailable LEONCIO PEOP[place]OFT HR DEVELOPER-HEAT TREAT FURNACE OPERATOR, CARLOTA Weller Attending Unavai lable MALCOM DO, DR HURST Primary Care Unavailable MALCOM DO, DR HURST Attending Unavailable MALCOM DO, DR HURST Primary Care Unavailable MALCOM DO, DR HURST Attending Unavailable MALCOM DO, DR HURST Primary Care Unavailable Wayt PA, Greg Primary Care Unavailable Wayt PA, Greg Attending Unavailable Wayt PA, Greg Referring Unavailable MerrittEldon Attending Unavailable MerrittEldon Referring Unavailable Wayt PA, Greg Primary Care Unavailable MerrittEldon Referring Unavailable MerrittEldon Attending Unavailable Wayt PA, Greg Primary Care Unavailable Eldon Merritt Attending Unavailable Wayt PA, Greg Primary Care Unavailable MerrittEldno Referring Unavailable Wayt PA, Greg Primary Care Unavailable Wayt PA, Greg Attending Unavailable Wayt PA, Greg Referring Unavailable Wayt PA, Greg Primary Care Unavailable Wayt PA, Greg Attending Unavailable Wayt PA, Greg Referring Unavailable MerrittEldon Attending Unavailable Wayt PA, Greg Primary Care Unavailable MerrittEldon Referring Unavailable Medications Current Medications Medication Drug Class(es) Dates Sig (Normalized) Sig (Original) Multivitamin preparation (4 sources) Start: 12-05-2022 take 1 tablet by mouth once daily Multivitamin Dose = 1 tab(s), Oral, Daily, 0 Refill(s) Start Date: 12/05/22 Status: Ordered Problems Active Problems Problem Classification Problem Date Documented Da te Episodic/Chronic Complication of device; implant or graft (1 source) Pain due to internal orthopedic prosthetic devices, implants and grafts, initial encounter; Translations: [Pain due to internal orthopedic prosthetic devices, implants and grafts, initial encounter] Onset: 11-05-2024 Episodic Nonmalignant breast conditions (2 sources) Breast lump 01-14-2023 Episodic Other connective tissue disease (1 source) Pain in right leg; Translations: [Pain in right leg] Onset: 11-04-2024 Episodic Other connective tissue disease (1 source) Neuralgia and neuritis, unspecified; Translations: [Neuralgia and neuritis, unspecified] Onset: 11-04-2024 Episodic Other connective tissue disease (2 sources) Pain in left leg; Translations: [Pain in left leg] Onset: 12-27-2023 Episodic Other nutritional; endocrine; and metabolic disorders (1 source) Obesity, unspecified; Translations: [Obesity, unspecified] Onset: 12-23-2023 Chronic Past or Other Problems Problem Classification Problem Date Documented Da te Episodic/Chronic Fracture of lower limb (1 source) Displaced fracture of lateral malleolus of left fibula, initial encounter for closed fracture; Translations: [Displaced fracture of lateral malleolus of left fibula, initial encounter for closed fracture] Onset: 12-12-2023 Episodic Immunizations and screening for infectious disease (1 source) Encounter for immunization; Translations: [Encounter for immunization] Onset: 01-14-2024 Episodic Results Test Name Value Interpretation Reference Range Facility Internal Medicine Office Vis banner 01-14-2024 Internal Medicine Office Visit [facility] [address] [place] [address] OFFICE VISIT Date of Service: 01/14/24 MR#: [id number] Acct: [id number] Name: DANIKA OLIVIA Rep #: [id number] : 1955 Provider: ETHAN Pennington Age/Sex: 68/F Location: [facility] Status: Signed Intake Vital Signs 11/19/23 11:33 11/28/23 09:36 01/14/24 11:40 Height 5 ft 7 in 5 ft 7 in 5 ft 7 in BP 132/90 H Blood Pressure Location Lt brachial Position Sitting Respiration 16 Pulse 83 Pulse Source Monitor Temp 98.6 F Temp Source Temporal Pulse Oximetry (%) 97 Oxygen Delivery Method room air Intake Visit Reasons: SURGERY FOLLOW UP Chief Complaint: SURGERY FOLLOW UP Is patient in pain?: No Allergies No Known Allergies Allergy (Verified 01/14/24 11:36) Medications ???Medication ???Instructions ???Recorded ???Confirmed ???Type multivitamin 1 tab PO DAILY 10/01/23 01/14/24 History ascorbic acid (vitamin C) 1,000 mg 1,000 mg PO DAILY 30 days #30 tabs 10/31/23 01/14/24 Rx tablet,extended release (Vitamin C ER) calcium 500 mg (as 1 tab PO DAILY 90 days #90 tabs 10/31/23 01/14/24 Rx carbonate)-vitamin D3 10 mcg (400 unit) tablet (Calcium 500 + D) ascorbic acid (vitamin C) 1,000 mg 1 g PO DAILY 90 days #90 tabs 11/28/23 01/14/24 Rx tablet (Vitamin C) calcium 500 mg (as 1 tab PO DAILY 90 days #90 tabs 11/28/23 01/14/24 Rx carbonate)-vitamin D3 15 mcg (600 unit) tablet (Os-Masood 500 + D3) docusate sodium 100 mg capsule 100 mg PO DAILY 10 days #10 caps 11/28/23 01/14/24 Rx (Colace) Have you fallen in the past year?: Yes (RESULTING IN LEFT ANKLE FRACTURE 10/31/23) PFSH Medical History Wears hearing aid Loss of hearing Wears dentures Arthritis Non-smoker Breast cyst Surgical History History of ankle surgery Family History Father Hyperlipemia Social History adopted: No household members: spouse number of children: 2 current occupational status: retired pets and animals: No sexually active: Yes Smoking Status: Never smoker alcohol intake: never substance use type: does not use caffeine: Yes (1) Type: carbonated beverages and tea frequency: 1-2 times per week seatbelt use: always do you feel safe at home: Yes HPI HPI Chief Complaint: SURGERY FOLLOW UP Details: DANIKA OLIVIA, is a 68 F who presents to the office today for F/U. Patient states that she isn't sure really why she is here. She is 6 weeks post-op from left ankle reconstruction but follows up with her clinical documentation spec regularly. She states that she feels very good in the ankle right now not having any pains in the ankle. She states that the ankle is extremely stiff after being immobilized for 10 weeks. She is starting to do some gentle ROM at home at the same time has not started formal physical therapy. She tries to elevate this regularly and she does use ice but only periodically. She has an appt in 2 weeks with him again. She does not really have any other concerns or complaints at this time. ROS Const Constitutional: No body ache, chills, excessive sweating, fatigue, fever(s), frequent falls, headache(s), snoring, weakness, sleep problems or change in appetite Eyes Eyes: No blurry vision, change in vision or Light sensitivity ENT ENT: No abnormal hearing, ear or mastoid pain, tinnitus, nasal congestion, nasal discharge, headache(s), neck pain or sore throat Resp Respiratory: No cough, shortness of breath, snoring or wheezing Cardio Cardiology: No chest pain at rest, chest pain with exertion, excessive sweating, shortness of breath, dyspnea on exertion, lightheadedness, orthopnea or palpitations Gastro GI: No abdominal pain, change in bowel habits, constipation, cramping, diarrhea or nausea/dyspepsia Genitourinary-Fema le: No burning urination, painful urination, urinary incontinence or urinary frequency Musc Musculoskeletal: Positive for other (LEFT ANKLE SURGERY/LLE IN BOOT); No abnormal gait, joint pain, back pain, limited range of motion, muscle weakness, neck pain or numbness Skin Skin: No dry skin, redness, lesions, itchy eyes, rash or wounds Neuro Neurology: No abnormal gait, abnormal hearing, weakness, frequent falls, headache(s), memory loss or numbness Psych Psychiatric: No anxiety, No change in appetite, No depression, No memory loss, No panic attacks and No Thoughts of harming yourself/Others Endo Endocrine: No cold intolerance, excessive sweating, fatigue, flushing, heat intolerance, increased thirst/drinking or increased hunger Aller/Imm Allergy/Immunologi c: No itchy eyes, seasonal allergy symptoms, hives or wheezing (more content not included)... Normal [facility] Ankle 2 Viewson 11-28-2023 Ankle 2 Views [facility] Imaging Services [address] [place] [address] Ankle 2 Views MR#: [id number] Acct: [id number] Name: DANIKA OLIVIA Rep #: [id number] : 1955 F 67 From: Balbir Meyer MD PCP: ETHAN Pennington Status: [facility] Study: Ankle 2 Views Date of Exam: 11/28/23 Exam# [id number] Ordering Dr: Eldon Merritt DPM [id number] STUDY: X-RAY - LEFT ANKLE REASON FOR EXAM: Female, 67 years old. ORIF LEFT ANKLE TECHNIQUE: 3 limited intraoperative view(s) of the ankle. COMPARISON: None. FINDINGS: 3 limited intraoperative views were obtained as the patient is undergoing open reduction internal fixation of a bimalleolar left ankle fracture. Alignment at the fracture sites is anatomic, follow-up recommended to a complete osseous union RAD/Ankle 2 Views IMPRESSION: No intraoperative complications noted during open reduction internal fixation of a left ankle fracture. Follow-up recommended to assure complete osseous union Electronically Signed: Ramses Meyer MD at 19:37 EDT , CC: ADALGISA Merritt; ETHAN Pennington Resource Development Manager: Signed Normal [facility] Bedside Glucoseon 11-28-2023 FINGERSTICK GLU 109 mg/dL High 74-106 [facility] Comment on above: Result Comment: DOMONIQUE GEMENT OF PATIENT CARE PER NURSING PROTOCOL Performed By: #### L 501.080 ####[facility] [id number] [place], [address] FINGERSTICK GLU 182 mg/dL High 74-106 [facility] Comment on above: Result Comment: DOMONIQUE GEMENT OF PATIENT CARE PER NURSING PROTOCOL Performed By: #### L 501.080 ####[facility] [id number] [place], [address] MR/POSTOP.ANEon 11-28-2023 MR/POSTOP.ANE [facility] Medical Records Department [address] [place] [address] Anesthesia Postop Eval I 11/28/23 1234 MR#: [id number] Acct: [id number] Name: DANIKA OLIVIA Rep #: [id number] : 1955 67 From: Gabo Love CRNA PCP: ETHAN Pennington Status:REG SDC Y Race: C Location: [place] [address] Anesthesia: Postop Eval I Current Vital Signs Temperature: 97 F Pulse Rate: 86 Blood Pressure: 122/68 Respiratory Rate: 16 Pulse Ox: 95 Oxygen Delivery Method: Room Air Assessment Airway patent: Yes Spontaneous unlabored respirations: Yes Mental status: Awake and Calm nausea: No Vomiting: No Anesthesia Complication: No Fluid Hydration Crystalloid volume administer (ml): 600 Total IV fluid infused: 600 Progress Note Anesthesia document: Postop Eval 1 completed: Yes 11/28/23 1235 Date Gabo Love SPLICER HELPER Cosigner Signature: Date CC: Signed Normal [facility] MR/[id number] 11-28-2023 MR/POSTOPAN2 [facility] Medical Records Department [address] [facility] [address] Anesthesia Postop Eval II 11/28/23 1430 MR#: [id number] Acct: [id number] Name: DANIKA OLIVIA Rep #: [id number] : 1955 67 From: Daniel Duffy MD PCP: ETHAN Pennington Status:REG SDC Y Race: C Location: [place] [address] Anesthesia Postop Eval I Sum Postop Eval Completion status Anesthesia document: Postop Eval 1 completed: Yes Anesthesia Postop Eval I Summary Anesthesia Postop Eval I Summary: Anesthesia Postop Eval I: Assessment Summary Airway patent Yes 11/28/23 12:35 [email or web address] Spontaneous unlabored Yes 11/28/23 12:35 [email or web address] respirations Mental status Awake,Calm 11/28/23 12:35 [email or web address] nausea No 11/28/23 12:35 [email or web address] [email or web address] Vomiting No 11/28/23 12:35 [email or web address] Anesthesia Postop Eval I: Fluid Summary Crystalloid volume administer 600 11/28/23 12:35 [email or web address] (ml) Colloids volume administered ( ml) Blood Product volume administered (ml) Total IV fluid infused 600 11/28/23 12:35 [email or web address] Anesthesia Postop Eval I: Summary Notes Anesthesia Complication No 11/28/23 12:35 [email or web address] Anesthesia Complication Comment: Post-operative progress note Anesthesia: Postop Eval II Evaluation Mental status: Awake Pain Level: 0 nausea: No Vomiting: No 11/28/23 1430 Date Daniel Duffy MD Cosigner Signature: Date CC: Signed Normal [facility] Operative Reporton 4 Operative Report [facility] Medical Records Department [address] [place] [address] Operative Report 11/28/23 1039 MR#: [id number] Acct: [id number] Name: DANIKA OLIVIA Rep #: [id number] : 1955 67 From: Eldon Merritt DPM PCP: ETHAN Pennington Status:REG [facility] Location: [place] [address] Problems Associated Problem List Diagnoses (1) Displaced fracture of lateral malleolus of left fibula, initial encounter for closed fracture: (2) Subluxation of left ankle joint, initial encounter: (3) Dislocation of left ankle joint, initial encounter: (4) Pain in left leg: Report of Operation Date of Procedure: 11/28/23 Pre-Operative Diagnosis: 1. Dislocated ankle fracture, left lower extremity plan 2. Subluxation of ankle, left lower extremity 3. Dislocated ankle fracture, left lower extremity 4. Pain, left leg Post-Operative Diagnosis: Same as preoperative diagnosis Surgery/Procedure Performed:: 1. Open reduction internal fixation, left ankle fracture 2. Stress views, left ankle 3. Repair of syndesmosis, left ankle Description of Surgical Findings:: 1. Mildly superior dislocation of the capital fragment of the distal fibula, left lower extremity. Next line 2. Had a rebreak the capital fragment of the fibula to allow the capital fragment to be out to length. Once out the length lobster claws were used to realign the oblique fracture. 3. Anatomic reduction of left lower extremity ankle fracture. Surgeon: Eldon Merritt quarter section ironer: Pamella Bliss Type of Anesthesia: Block,Regional, General and Local Anesthesiologist: Armando Tucker Special Medications: 1. Popliteal block provided by anesthesia, left lower extremity Specimen's removed: None Drains: None Estimated Blood Loss (mL): 15 mL Fluids Replaced: 600 mL Description of Procedure: Indications For Operation: Mrs. Olivia is a 67-year-old female who was admitted to [facility] for left lower extremity open reduction internal fixation ankle fracture. Patient was initially seen in the emergency department where she ended up with a dislocated ankle fracture to left lower extremity approximately 3-1/2 weeks ago. Patient was closed reduced using conscious sedation. After reduction the patient was placed in a AO splint and reported to my office for consultation evaluation. Due to the nature of the dislocated ankle it would was educated to the patient that she would need to move forward with open reduction total fixation to allow for anatomic healing of the left lower extremity ankle and foot. Surgical consultation in office was obtained, chart review and consent was signed. Due to initial presentation of the dislocated ankle fracture to left lower extremity it was deemed necessary to take the patient back to the operating room and to perform the above procedure to fix her left ankle fracture and syndesmosis. The nature of the problem, anticipated procedures, postop recovery/convalenc es and risk/complications include but not limited to infection, wound healing complications, digital amputation, hypertrophic scarring, numbness, tingling, chronic pain, CRPS, over and under correction, recurrence of deformity, DVT and or PE and the need for further surgery have been discussed in great detail with the patient. All questions have been answered to the patient's satisfaction. There are no guarantees given as to the outcome of the procedure. Description of Procedure: Under mild sedation, the patient was brought into the operating room and placed on the operating table in supine position. Once the patient was under general anesthesia with laryngeal mask airway, the left lower extremity was blocked using approximately 10 cc0.5% Marcaine plain to the left lower extremity saphenous nerve, popliteal block was performed by anesthesia please see anesthesia notes for further detail. Next, a well-padded thigh tourniquet was applied to the left lower extremity. Next, the left lower extremity was prepped and draped in normal aseptic manner. Next, a timeout was then undertaken verifying the correct patient, extremity, visibility of preoperative markings, availability of the equipment. Next, attention was directed to the left lower extremity. Using a 6 inch Esmarch, left lower extremity was exsanguinated and elevated to 60 degrees for 1 minute. 1. Open reduction internal fixation, left ankle fracture Next, attention was directed to the left lower extremity. Using large C-arm fluoroscopy, the ankle joint syndesmosis and fibula were marked out prior to incision. Once all landmarks were obtained, a large full-thickness incision down to bone to the lateral ankle over the fibula was performed. Continued sharp dissection was carried down the distal and proximal aspect of the fracture line to the fibula. The fracture line was identified and showed evidence of superior translation. There is evidence of (more content not included)... Normal [facility] Miscellaneous Lab Procedureo n 11-27-2023 [facility] LAB TEST Normal [facility] Comment on above: Order Comment: [id number] Result Comment: TEST RESULTS LIMITS Nicotine Metabolite, Urine Cotinine Negative ng/mL [id number] TESTING PERFORMED AT [facility]. ORIGINAL REPORT ON FILE IN LAB CONTAINS ADDITIONAL TEST SITE INFORMATION. Performed By: #### L 801.1541, L500.4100, L100.0100, L500.4050 #### [facility] [address] [place], [address] CBC W/Diff, Automatedon 09-3 0-2023 Absolute Lymph 2.06 X10 3/uL Normal 0.83-4.51 [facility] Comment on above: Performed By: #### L 801.1541, L500.4100, L100.0100, L500.4050 #### [facility] [address] [place], [address] Absolute Neut 3.0 X10 3/uL Normal 2.0-7.7 [facility] Comment on above: Performed By: #### L 801.1541, L500.4100, L100.0100, L500.4050 #### [facility] [address] [place], [address] Basophils/100 WBC (Bld) 0.5 % Normal 0-1 [facility] Comment on above: Performed By: #### L 801.1541, L500.4100, L100.0100, L500.4050 #### [facility] [address] [place], [address] Eosinophils/100 WBC (Bld) 1.7 % Normal 0-5 [facility] Comment on above: Performed By: #### L 801.1541, L500.4100, L100.0100, L500.4050 #### [facility] [address] [place], [address] Erythrocyte distribution width (RBC) [Ratio] 13.5 % Normal 11.6-14.6 [facility] Comment on above: Performed By: #### L 801.1541, L500.4100, L100.0100, L500.4050 #### [facility] [address] [place], [address] Hematocrit (Bld) [Volume fraction] 41.6 % Normal 37-47 [facility] Comment on above: Performed By: #### L 801.1541, L500.4100, L100.0100, L500.4050 #### [facility] [address] [place], [address] Hemoglobin (Bld) [Mass/Vol] 13.3 g/dL Normal 12.0-15.0 [facility] Comment on above: Performed By: #### L 801.1541, L500.4100, L100.0100, L500.4050 #### [facility] [address] [place], [address] IG% 0.700 Normal 0.0-0.9 [facility] Comment on above: Result Comment: IG% - Immature Granulocytes (promyelocytes, myelocytes and metamyelocytes) > 1% indicates that a LEFT SHIFT is Present. Performed By: #### L 801.1541, L500.4100, L100.0100, L500.4050 #### [facility] [address] [place], [address] Lymphocytes/100 WBC (Bld) 34.6 % Normal 19-41 [facility] Comment on above: Performed By: #### L 801.1541, L500.4100, L100.0100, L500.4050 #### [facility] [address] [place], [address] MCH (RBC) [Entitic mass] 29.8 pg Normal 27.0-32.0 [facility] Comment on above: Performed By: #### L 801.1541, L500.4100, L100.0100, L500.4050 #### [facility] [address] [place], [address] MCHC (RBC) [Mass/Vol] 32.0 g/dL Normal 32-36 [facility] Comment on above: Performed By: #### L 801.1541, L500.4100, L100.0100, L500.4050 #### [facility] [address] [place], [address] MCV (RBC) [Entitic vol] 93.1 fL Normal 81-99 [facility] Comment on above: Performed By: #### L 801.1541, L500.4100, L100.0100, L500.4050 #### [facility] [address] [place], [address] Monocytes/100 WBC (Bld) 11.8 % High 0-10 [facility] Comment on above: Performed By: #### L 801.1541, L500.4100, L100.0100, L500.4050 #### [facility] [address] [place], [address] Neutrophils/100 WBC (Bld) 50.7 % Normal 47-70 [facility] Comment on above: Performed By: #### L 801.1541, L500.4100, L100.0100, L500.4050 #### [facility] [address] [place], [address] Nucleated RBC (Bld) [#/Vol] 0 10*3/uL Normal 0-5 [facility] Comment on above: Performed By: #### L 801.1541, L500.4100, L100.0100, L500.4050 #### [facility] [address] [place], [address] Platelet mean volume (Bld) [Entitic vol] 10.0 fL Normal 6.2-12.0 [facility] Comment on above: Performed By: #### L 801.1541, L500.4100, L100.0100, L500.4050 #### [facility] [address] [place], [address] Platelets (Bld) [#/Vol] 317 10*3/uL Normal 150-450 [facility] Comment on above: Performed By: #### L 801.1541, L500.4100, L100.0100, L500.4050 #### [facility] [address] [place], [address] RBC (Bld) [#/Vol] 4.47 10*6/uL Normal 4.2-5.4 [facility] Comment on above: Performed By: #### L 801.1541, L500.4100, L100.0100, L500.4050 #### [facility] [address] [place], [address] RDW SD 46.3 fl High 35.1-43.9 [facility] Comment on above: Performed By: #### L 801.1541, L500.4100, L100.0100, L500.4050 #### [facility] [address] [place], [address] WBC (Bld) [#/Vol] 6.0 10*3/uL Normal 4.4-11.0 [facility] Comment on above: Performed By: #### L 801.1541, L500.4100, L100.0100, L500.4050 #### [facility] [address] [place], [address] Comprehensive Metabolic Prof ilon 11-24-2023 Albumin [Mass/Vol] 4.1 g/dL Normal 3.2-5.0 [facility] Comment on above: Performed By: #### L 801.1541, L500.4100, L100.0100, L500.4050 #### [facility] [address] [place], [address] Albumin/Globulin [Mass ratio] 1.1 {ratio} Normal 0.9-2.4 [facility] Comment on above: Performed By: #### L 801.1541, L500.4100, L100.0100, L500.4050 #### [facility] [address] [place], [address] ALK P 75 U/L Normal 45-117 [facility] Comment on above: Performed By: #### L 801.1541, L500.4100, L100.0100, L500.4050 #### [facility] [address] [place], [address] ALT [Catalytic activity/Vol] 27 U/L Normal 13-56 [facility] Comment on above: Performed By: #### L 801.1541, L500.4100, L100.0100, L500.4050 #### [facility] [address] [place], [address] AST [Catalytic activity/Vol] 20 U/L Normal 15-37 [facility] Comment on above: Performed By: #### L 801.1541, L500.4100, L100.0100, L500.4050 #### [facility] [address] [place], [address] Bilirubin [Mass/Vol] 0.80 mg/dL Normal 0.20-1.00 [facility] Comment on above: Result Comment: For patients on eltrombopag therapy, use of Dimension [place] TBIL is not recommended. Performed By: #### L 801.1541, L500.4100, L100.0100, L500.4050 #### [facility] [address] [place], [address] BUN/CRE 19.2 RATIO Normal 10-20 [facility] Comment on above: Performed By: #### L 801.1541, L500.4100, L100.0100, L500.4050 #### [facility] [address] [place], [address] CA,Total 9.6 mg/dL Normal 8.5-10.1 [facility] Comment on above: Performed By: #### L 801.1541, L500.4100, L100.0100, L500.4050 #### [facility] [address] [place], [address] Chloride [Moles/Vol] 104 mmol/L Normal 98-107 [facility] Comment on above: Performed By: #### L 801.1541, L500.4100, L100.0100, L500.4050 #### [facility] [address] [place], [address] CO2 [Moles/Vol] 28.0 mmol/L Normal 21.0-32.0 [facility] Comment on above: Performed By: #### L 801.1541, L500.4100, L100.0100, L500.4050 #### [facility] [address] [place], [address] Creatinine [Mass/Vol] 1.04 mg/dL High 0.55-1.02 [facility] Comment on above: Result Comment: The validity of the calculated GFR GFRAA in patients over 70 years has not been determined. Clinical correlation is essential. Performed By: #### L 801.1541, L500.4100, L100.0100, L500.4050 #### [facility] [address] [place], [address] EST GFR - AA 68 mL/min Normal >60 [facility] Comment on above: Result Comment: Afri can Vincentian GFR Calc Performed By: #### L 801.1541, L500.4100, L100.0100, L500.4050 #### [facility] [address] [place], [address] GAP 7 Normal 5-15 [facility] Comment on above: Performed By: #### L 801.1541, L500.4100, L100.0100, L500.4050 #### [facility] [address] [place], [address] GFR/1.73 sq M.predicted among non-blacks MDRD (S/P/Bld) [Vol rate/Area] 56 mL/min/{1.73_m2} Low >60 [facility] Comment on above: Result Comment: Non- GFR Calc Performed By: #### L 801.1541, L500.4100, L100.0100, L500.4050 #### [facility] [address] [place], [address] Globulin (S) [Mass/Vol] 3.6 g/dL Normal 2.2-4.2 [facility] Comment on above: Performed By: #### L 801.1541, L500.4100, L100.0100, L500.4050 #### [facility] [address] [place], [address] Glucose [Mass/Vol] 100 mg/dL Normal 74-106 [facility] Comment on above: Result Comment: Fast ing Glucose result from 100 to 125 mg/dL suggests IMPAIRED HOMEOSTASIS per A.D.A. criteria. Performed By: #### L 801.1541, L500.4100, L100.0100, L500.4050 #### [facility] [address] [place], [address] Potassium [Moles/Vol] 4.2 mmol/L Normal 3.5-5.1 [facility] Comment on above: Performed By: #### L 801.1541, L500.4100, L100.0100, L500.4050 #### [facility] [address] [place], [address] Sodium [Moles/Vol] 139 mmol/L Normal 136-145 [facility] Comment on above: Performed By: #### L 801.1541, L500.4100, L100.0100, L500.4050 #### [facility] [address] [place], [address] T PROT 7.7 g/dL Normal 6.4-8.2 [facility] Comment on above: Performed By: #### L 801.1541, L500.4100, L100.0100, L500.4050 #### [facility] [address] [place], [address] Urea nitrogen [Mass/Vol] 20 mg/dL High 7-18 [facility] Comment on above: Performed By: #### L 801.1541, L500.4100, L100.0100, L500.4050 #### [facility] [address] [place], [address] Hemoglobin A1con 11-24-2023 HbA1c (Bld) [Mass fraction] 5.8 % High 3.8-5.6 [facility] Comment on above: Result Comment: Norm al < 5.7 % Prediabetic 5.7 - 6.4 % Diabetic >or= 6.5 % Please note range changes. Performed By: #### L 506.1000, L505.6240, L501.5200, L501.9985 ####[facility] [address] [place], [address] Lipid Profileon 11-24-2023 Cholesterol [Mass/Vol] 238 mg/dL High 200 [facility] Comment on above: Result Comment: <200 mg/dL Desirable 200-240 mg/dL Borderline >240 mg/dL High Risk Performed By: #### L 801.1541, L500.4100, L100.0100, L500.4050 #### [facility] [address] [place], [address] Cholesterol in HDL [Mass/Vol] 44 mg/dL Normal [facility] Comment on above: Result Comment: The drugs N-Acetylcysteine and Metamizole may falsely depress this assay. Reference Range HDL <40 mg/dL Low HDL Cholesterol HDL >or= 60 mg/dL High HDL Cholesterol Performed By: #### L 801.1541, L500.4100, L100.0100, L500.4050 #### [facility] [address] [place], [address] Cholesterol in LDL [Mass/Vol] 155 mg/dL High 0-130 [facility] Comment on above: Performed By: #### L 801.1541, L500.4100, L100.0100, L500.4050 #### [facility] [address] [place], [address] Cholesterol in VLDL [Mass/Vol] 39 mg/dL Normal 5-40 [facility] Comment on above: Performed By: #### L 801.1541, L500.4100, L100.0100, L500.4050 #### [facility] [address] [place], [address] Triglyceride [Mass/Vol] 194 mg/dL Normal [facility] Comment on above: Result Comment: The drugs N-Acetylcysteine and Metamizole may falsely depress this assay. Serum Triglycerides Reference Interval Normal <150 mg/dL Borderline high 150 - 199 mg/dL High 200 - 499 mg/dL Very High > or = 500 mg/dL Performed By: #### L 801.1541, L500.4100, L100.0100, L500.4050 #### [facility] [address] [place], [address] Magnesiumon 11-24-2023 Magnesium [Mass/Vol] 2.2 mg/dL Normal 1.6-2.6 [facility] Comment on above: Performed By: #### L 506.1000, L505.6240, L501.5200, L501.9985 ####[facility] [address] [place], [address] Nicotine Urine Drug Screenon 11-24-2023 COT DRG SCREEN Normal <200 ng/mL [facility] Comment on above: Result Comment: SEND OUT TEST. Cotinine is the first-stage metabolite of Nicotine. Performed By: #### L 506.1000, L505.6240, L501.5200, L501.9985 ####[facility] [address] [place], [address] DRUG CONFIRM Normal [facility] Comment on above: Result Comment: SEND OUT TEST. CONFIRMATORY TESTING FOR ALL POSITIVE URINE DRUG SCREEN RESULTS WILL ONLY BE SENT OUT UPON PHYSICIAN ORDER. The results of Urine Drug Screen methods provide only preliminary analytical test results. A more specific alternate chemical method must be used in order to obtain a confirmed analytical result. Gas chromatography/mass spectrometery (GC/MS) is the preferred confirmatory method. Clinical consideration and professional judgement should be applied to any drug of abuse test result, particularly when preliminary positive results are used. Performed By: #### L 506.1000, L505.6240, L501.5200, L501.9985 ####[facility] [address] [place], [address] COT Internal QC Normal VALID [facility] Comment on above: Result Comment: SEND OUT TEST. Performed By: #### L 506.1000, L505.6240, L501.5200, L501.9985 ####[facility] [address] [place], [address] Vitamin D,25 Hydroxyon 11-23 Vitamin D 25-OH 30.6 ng/mL Normal [facility] Comment on above: Result Comment: [place] min D 25(OH) Status Range Deficiency <20 ng/mL (50nmol/L) Insufficiency 20 - 30 ng/mL (50 - 75 nmol/L) Sufficiency 30 - 100 ng/mL (75 - 250 nmol/L) Toxicity >100 ng/mL (>250 nmol/L) Performed By: #### L 506.1000, L505.6240, L501.5200, L501.9985 #### [facility] [address] [place], [address] Internal Medicine Office Vis iton 11-19-2023 Internal Medicine Office Visit [facility] [address] [place] [address] [place] [address] OFFICE VISIT Date of Service: 11/19/23 MR#: [id number] Acct: [id number] Name: DANIKA OLIVIA Rep #: [id number] : 1955 Provider: ETHAN Pennington Age/Sex: 67/F Location: [facility] Status: Signed Intake Vital Signs 10/31/23 08:58 11/19/23 11:33 Height 5 ft 7 in 5 ft 7 in Weight: 190 lb BMI 29.7 BP 120/78 Blood Pressure Location Lt brachial Position Sitting Respiration 14 Pulse 84 Pulse Source Monitor Temp 98 F Temp Source Temporal Pulse Oximetry (%) 98 Oxygen Delivery Method room air Intake Visit Reasons: SURGICAL CLEARANCE 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 Is patient in pain?: Yes (L ankle) Pain scale (1-10): 0 Allergies No Known Allergies Allergy (Verified 11/19/23 11:23) Medications ???Medication ???Instructions ???Recorded ???Confirmed ???Type multivitamin 1 tab PO DAILY 10/01/23 11/19/23 History ascorbic acid (vitamin C) 1,000 mg 1,000 mg PO DAILY 30 days #30 tabs 10/31/23 11/19/23 Rx tablet,extended release (Vitamin C ER) calcium carbonate 500 mg-vitamin 1 tab PO DAILY 90 days #90 tabs 10/31/23 11/19/23 Rx D3 10 mcg (400 unit) tablet (Calcium 500 + D) cyclobenzaprine 5 mg tablet 5 mg PO TID PRN muscle spasm #14 10/31/23 11/19/23 Rx tabs docusate sodium 100 mg capsule 100 mg PO BID #30 caps 10/31/23 11/19/23 Rx (Colace) oxycodone-acetamin ophen 5 mg-325 1 tab PO TID PRN pain 4 days #12 10/31/23 11/19/23 Rx mg tablet (Percocet) tabs Have you fallen in the past year?: Yes (09/2023) Nurse's Note: Is here for L ankle surgical clearance for Dr. Merritt is scheduled for 11/28/23. States when moving ankle pain goes to a 09/02. [facility] Medical History Breast cyst Family History Father Hyperlipemia Social History adopted: No household members: spouse number of children: 2 current occupational status: retired pets and animals: No sexually active: Yes Smoking Status: Never smoker alcohol intake: never substance use type: does not use caffeine: Yes (1) Type: carbonated beverages and tea frequency: 1-2 times per week seatbelt use: always do you feel safe at home: Yes HPI HPI Details: DANIKA OLIVIA, is a 67 F who presents to the office today for pre-operative clearance. Patient was holding her dog's leash in 1 hand and something in the other and was standing near 2 steps when she fell somehow twisting the ankle causing a distal fibula fracture and a dislocation of the ankle joint. They state it was very obvious that something was wrong and therefore they did take her to the emergency department. They are in the emergency department she did have closed reduction performed and consult with podiatry. At this time patient is scheduled for a surgical fixation with fibular plate and tightrope. Overall patient is a healthy 67-year-old female with no significant past medical history. Patient has never taken any prescription medications other than occasional muscle relaxant and stool softener. She does take some vitamins on a regular basis. Patient denies any significant family medical history. Currently she is feeling well without any type of headache, dizziness, visual changes, chest pains/pressures, shortness of breath, wheezing, nausea, vomiting, diaphoresis, lethargy/fatigue, or other symptoms. ROS Const Constitutional: No body ache, chills, excessive sweating, fatigue, fever(s), frequent falls, headache(s), snoring, weakness, sleep problems or change in appetite Eyes Eyes: No blurry vision, change in vision, eye pain or Light sensitivity ENT ENT: No abnormal hearing, ear or mastoid pain, tinnitus, nasal congestion, headache(s), neck pain or sore throat Resp Respiratory: No cough, shortness of breath, snoring or wheezing Cardio Cardiology: No chest pain at rest, chest pain with exertion, excessive sweating, shortness of breath, dyspnea on exertion, lightheadedness, orthopnea or palpitations Gastro GI: No abdominal pain, change in bowel habits, constipation, cramping, diarrhea, nausea/dyspepsia or vomiting Genitourinary-Fema le: No burning urination, painful urination, urinary incontinence, urinary frequency, abnormal vaginal bleeding or pelvic pain Musc Musculoskeletal: No abnormal gait, joint pain, back pain, limited range of motion, neck pain or numbness Skin Skin: No dry skin, redness, lesions, itchy eyes, rash or wounds Neuro Neurology: No abnormal gait, abnormal hearing, weakness, frequent falls, headache(s), memory loss or numbness Psych Psychiatric: No anxiety, No change in appetite, No depression, No amador (more content not included)... Normal [facility] Extremity Lower without Cont raon 11-17-2023 Extremity Lower without Contra [facility] Imaging Services [address] [place], [place] [id number] Extremity Lower without Contra MR#: [id number] Acct: [id number] Name: DANIKA OLIVIA Rep #: [id number] : 1955 F 67 From: Lamont Keane MD PCP: ETHAN Pennington Status: REG CLI Study: Extremity Lower without Contra Date of Exam: 0 11/17/23 Exam# [id number] Ordering Dr: Eldon Merritt DPM [id number] EXAM: CT LEFT LOWER EXTREMITY WITHOUT INTRAVENOUS CONTRAST, ANKLE CLINICAL INDICATION: LT ANKLE FRACTURE TECHNIQUE: Helically acquired images were obtained of the left ankle without intravenous contrast. 2-D reformats were performed by the technologist. CTDIvol = ( 15.35 ) mGy, DLP = ( 465.06 ) mGycm This CT exam was performed using one or more of the following dose reduction techniques: automated exposure control, adjustment of the mA and/or kV according to patient size, and/or use of iterative reconstruction technique. COMPARISON: October 31, 2023 exam FINDINGS: BONES/JOINTS: Acute nondisplaced fracture involving the metaphysis of the distal fibula. There is a remote osteochondral lesion/lucency measuring 4 mm at the medial talar dome. There there is a mildly displaced acute comminuted fracture at the medial malleolus. Ankle mortise appears intact. Small old fracture fragments which are corticated and located near the the inferior process of the medial malleolus. No dislocation. SOFT TISSUES: Unremarkable. No soft tissue swelling or gas. No radiopaque foreign body. CT/Extremity Lower without Contra IMPRESSION: 1. Acute nondisplaced fracture involving the metaphysis of the distal fibula. 2. Mildly displaced acute comminuted fracture at the medial malleolus. 3. Old osteochondral defect at the medial talar dome. Electronically Signed: Lamont Keane MD at 0:19 EDT , CC: ADALGISA Merritt; ETHAN Pennington Resource Development Manager: Signed [facility] US BREAST RIGHT LIMITEDon US BREAST RIGHT LIMITED ORIGINAL FROM: [facility] [address] [place] [address] PROCEDURE FOR: DANIKA OLIVIA [address] [place] [id number] Home: PID#: [id number] Exam#: [id number] : 1955 Age: 67 TO: CARLOTA FANG APRN [facility] [address] [place], [place] [address] Fax: NO FAX EXAMINATION: ULTRASOUND OF THE RIGHT BREAST 07/31/2023 10:15 am TECHNIQUE: Color flow and real-time targeted ultrasound of the right breast were performed. COMPARISON: 01/28/2023 HISTORY: ORDERING SYSTEM PROVIDED HISTORY: Reason for Exam: 6 mo f/u right breast mass FINDINGS: Right breast hypoechoic mass is not significantly changed in size or morphology measuring approximately 6 x 4 x 4 mm. IMPRESSION: No change in the right breast mass, most likely a complex cyst, follow-up ultrasound in 6 months is recommended to document stability. Patient is due for bilateral mammography in December of 2023 BIRADS: MAMMOGRAM BI-RADS: 3: Probably benign RECALL: 6 month follow-up RECALL TYPE: US LETTER SENT: Probably Benign BI-RADS 3 Interpreted by: Zafar Falk MD Preliminary Report By: Zafar Falk MD Electronically signed By Zafar Falk MD Dictated Date: 07/31/2023 11:06:31 AM Prelim Date: 07/31/2023 11:09:06 AM Sign Date: 07/31/2023 11:09:06 AM Ordering Provider: CARLOTA FANG CLINICAL: 6 MONTHS FOLLOW-UP RIIGHT BREAST CYST 10:00. Can Striper: DIONICIO HANSEN [facility] letter sent: Probably Benign BI-RADS 3 Ultrasound BI-RADS: 3 Probably benign [facility] ([place]) US BREAST RIGHT LIMITEDon US BREAST RIGHT LIMITED ORIGINAL FROM: [address] [address] PROCEDURE FOR: DANIKA OLIVIA [address] [place] [address] Home: PID#: [id number] Exam#: [id number] : 1955 Age: 67 TO: ARIS العراقي [address] [place], [place] [address] Fax: NO FAX EXAMINATION: ULTRASOUND OF THE RIGHT BREAST 01/28/2023 1:03 pm TECHNIQUE: Color flow and real-time targeted ultrasound of the right breast at 10 o'clock were performed. COMPARISON: 01/08/2023, 12/27/2022 HISTORY: ORDERING SYSTEM PROVIDED HISTORY: Reason for Exam: Possible right breast aspiration/biopsy recommended for right breast mass 10:00 FINDINGS: In the right breast at 10 o'clock approximately 2 cm from the nipple there is a 0.6 cm oval, circumscribed hypoechoic mass likely representing a complicated cyst. No increased internal vascularity. This does not appear significantly changed from prior ultrasound 01/08/2023. A biopsy was deferred at this time given that the lesion resembles a complicated cyst and is probably benign. A six-month follow-up right breast ultrasound is recommended to which the patient agreed. IMPRESSION: The 0.6 cm oval mass in the right breast at 10 o'clock 2 cm from the nipple is felt to represent a complicated cyst and is probably benign; ultrasound-guided biopsy was deferred at this time. A 6 month follow up right breast ultrasound is recommended to demonstrate stability. I have personally reviewed the images of this examination and agree with the resident's findings and interpretation. BIRADS: MAMMOGRAM BI-RADS: 3: Probably benign RECALL: 6 month follow-up RECALL TYPE: Right US LETTER SENT: Probably Benign BI-RADS 3 Interpreted by: Delmis Fuchs Preliminary Report By: Carlota Caceres Electronically signed By Delmis Fuchs Dictated Date: 01/28/2023 3:30:58 PM Prelim Date: 01/28/2023 3:46:14 PM Sign Date: 01/28/2023 3:46:14 PM Ordering Provider: CARLOTA FANG CLINICAL: MAMMOGRAPHIC DENSITY RIGHT BREAST 10 O'CLOCK. Can Striper: CATHY FRAGA RT(R)(M), RDWY letter sent: Probably Benign BI-RADS 3 Ultrasound BI-RADS: 3 Probably benign [facility] ([place]) US BREAST RIGHT LIMITEDon US BREAST RIGHT LIMITED ORIGINAL FROM: [facility] [address] [place], [place] [address] PROCEDURE FOR: DANIKA OLIVIA [address] [place] [address] Home: PID#: [id number] Exam#: [id number] : 1955 Age: 67 TO: ARIS العراقي DO [address] [place] [address] Fax: NO FAX EXAMINATION: ULTRASOUND OF THE 01/08/2023 8:53 am TECHNIQUE: Color flow and real-time targeted ultrasound of the were performed. COMPARISON: 12/27/2022 mammogram HISTORY: ORDERING SYSTEM PROVIDED HISTORY: Reason for Exam: ABNORMAL MAMMOGRAM Right breast mass FINDINGS: At 10 o'clock in the right breast 1 cm from the nipple there is a hypoechoic mass corresponding to the mammographic abnormality which measures 6 mm, there is an internal septation and some low level internal echoes and the border is slightly irregular, no visible vascularity. Otherwise unremarkable. IMPRESSION: Right breast hypoechoic mass corresponding to the mammographic abnormality, this could relate to a complex cyst but is indeterminate and a ultrasound-guided diagnostic aspiration/biopsy is recommended to further evaluate. BIRADS: MAMMOGRAM BI-RADS: 4: Suspicious abnormality RECALL: immediate RECALL TYPE: Biopsy followup LETTER SENT: Biopsy Recommended BI-RADS 4 and 5 Interpreted by: Zafar Falk MD Preliminary Report By: Zafar Falk MD Electronically signed By Zafar Falk MD Dictated Date: 01/08/2023 9:26:57 AM Prelim Date: 01/08/2023 9:30:12 AM Sign Date: 01/08/2023 9:30:12 AM Ordering Provider: ARIS العراقي CLINICAL: MAMMOGRAPHIC DENSITY RIGHT BREAST. Can Striper: KERMIT ROCHA RT,RDMS,RVT,RDCS letter sent: Biopsy Recommended BI-RADS 4 and 5 Ultrasound BI-RADS: 4 Suspicious for malignancy [facility] ([place]) [place] MAMMOGRAM SCREENING BILAT ERAL W/TOMOon 12-28-2022 [place] MAMMOGRAM SCREENING BILATERAL W/ISAAC ORIGINAL FROM: [address] [address] PROCEDURE FOR: DANIKA OLIVIA [address] [place] [address] Home: PID#: [id number] Exam#: [id number] : 1955 Age: 67 TO: ARIS العراقي DO [address] [place], [place] [address] Fax: NO FAX EXAMINATION: SCREENING DIGITAL BILATERAL MAMMOGRAM WITH TOMOSYNTHESIS, 12/27/2022 7:21 am TECHNIQUE: Screening mammography of the bilateral breasts was performed with tomosynthesis. 2D standard and 3D tomosynthesis combination imaging performed through both breasts in the MLO and CC projection. Computer aided detection was utilized in the interpretation of this exam. COMPARISON: None. HISTORY: Breast cancer screening. FINDINGS: BREAST DENSITY: Scattered fibroglandular tissue There is a 5 mm irregular mass in the right breast at 10 o'clock anterior depth. This is confirmed on additional tomographic views. There are no other significant masses, calcifications, or other findings. IMPRESSION: The 5 mm irregular mass in the right breast at 10 o'clock is indeterminate. A right breast ultrasound is recommended. We will contact the patient to arrange for the exam. Deya Contreras risk calculations, generated with the history provided, report this patient's 10 year risk and lifetime risk for developing breast cancer at 2.8% and 5.8%, respectively. Based on this assessment tool, if the patient's calculated lifetime risk is below 20%, then the patient is considered at average risk for developing breast cancer. If the patient's calculated lifetime risk is at or above 20%, then the patient is considered high risk for developing breast cancer and may be a candidate for supplemental breast MRI screening in addition to annual mammographic screening per the [employer]. BIRADS: MAMMOGRAM BI-RADS: 0: Needs addl evaluation RECALL: immediate RECALL TYPE: Right US LETTER SENT: Abnormal-Needs additional work up BI-RADS 0 Interpreted by: Darrell Ramos MD Preliminary Report By: Darrell Ramos MD Electronically signed By Darrell Ramos MD Dictated Date: 12/28/2022 4:57:45 PM Prelim Date: 12/28/2022 5:00:39 PM Sign Date: 12/28/2022 5:00:39 PM Ordering Provider: ARIS العراقي CLINICAL: BASELINE Has been over 15 yrs since the last mmmogram. Can Striper: AR HANSEN (Janee)(M) letter sent: Abnormal-Needs additional work up BI-RADS 0 Mammogram BI-RADS: 0 Indeterminate [facility] ([place]) .GFRon 12-11-2022 GFR 65 ml/min/1.73sqm Normal [facility] ([place]) Comment on above: Result Comment: GFR Population mean for , Non- Americans Ages 20-29 = 116 mL/min/1.73 sq.m. Ages 30-39 = 107 mL/min/1.73 sq.m. Ages 40-49 = 99 mL/min/1.73 sq.m. Ages 50-59 = 93 mL/min/1.73 sq.m. Ages 60-69 = 85 mL/min/1.73 sq.m. Ages 70+ = 75 mL/min/1.73 sq.m. Chronic Kidney Disease: Less than 60 mL/min/1.73 square meters End Stage Renal Disease: Less than 15 mL/min/1.73 square meters Performed By: #### L IPID, CMP, GFR #### [address] [place], [place] [address] GFR Non- 54 ml/min/1.73sqm Normal [facility] ([place]) Comment on above: Result Comment: GFR Population mean for , Non- Americans Ages 20-29 = 116 mL/min/1.73 sq.m. Ages 30-39 = 107 mL/min/1.73 sq.m. Ages 40-49 = 99 mL/min/1.73 sq.m. Ages 50-59 = 93 mL/min/1.73 sq.m. Ages 60-69 = 85 mL/min/1.73 sq.m. Ages 70+ = 75 mL/min/1.73 sq.m. Chronic Kidney Disease: Less than 60 mL/min/1.73 square meters End Stage Renal Disease: Less than 15 mL/min/1.73 square meters Performed By: #### L IPID, CMP, GFR #### [address] [address] CMPon 12-11-2022 Albumin Level 4.1 G/dL Normal 3.4-4.8 [facility] ([place]) Comment on above: Performed By: #### L IPID, CMP, GFR #### [address] [address] Albumin/Globulin [Mass ratio] 1.1 {ratio} Normal 1.1-2.5 [facility] ([place]) Comment on above: Performed By: #### L IPID, CMP, GFR #### [address] [address] ALP [Catalytic activity/Vol] 89 U/L Normal 40-135 [facility] ([place]) Comment on above: Performed By: #### L IPID, CMP, GFR #### [address] [address] [address] ALT [Catalytic activity/Vol] 26 U/L Normal 14-59 [facility] ([place]) Comment on above: Performed By: #### L IPID, CMP, GFR #### [address] [address] AST [Catalytic activity/Vol] 18 U/L Normal 10-40 [facility] ([place]) Comment on above: Performed By: #### L IPID, CMP, GFR #### [address] [address] Bili Total 0.5 mg/dL Normal 0.2-1.0 [facility] ([place]) Comment on above: Result Comment: Use of this assay is not recommended for patients undergoing treatment with eltrombopag due to the potential for falsely elevated results. Performed By: #### L IPID, CMP, GFR #### [address] [address] BUN/Creatinine Ratio 22 ratio Normal 7-27 [facility] ([place]) Comment on above: Performed By: #### L IPID, CMP, GFR #### [address] [address] Calcium [Mass/Vol] 9.2 mg/dL Normal 8.4-10.2 [facility] ([place]) Comment on above: Performed By: #### L IPID, CMP, GFR #### [place] [id number] Chloride [Moles/Vol] 102 mmol/L Normal 98-107 [facility] ([place] Comment on above: Performed By: #### L IPID, CMP, GFR #### [place] [id number] CO2 [Moles/Vol] 27 mmol/L Normal 23-31 [facility] ([place]) Comment on above: Performed By: #### L IPID, CMP, GFR #### [place] [id number] Creatinine [Mass/Vol] 1.03 mg/dL High 0.55-1.02 [facility] ([place]) Comment on above: Performed By: #### L IPID, CMP, GFR #### [address] [address] Electrolyte Balance 11.0 mEq/L Normal 4.0-15.0 [facility] ([place] Comment on above: Performed By: #### L IPID, CMP, GFR #### [address] [address] Globulin 3.8 G/dL Normal [facility] ([place]) Comment on above: Performed By: #### L IPID, CMP, GFR #### [address] [address] Glucose [Mass/Vol] 119 mg/dL High 80-115 [facility] ([place] Comment on above: Performed By: #### L IPID, CMP, GFR #### [place] [phone] Potassium [Moles/Vol] 4.7 mmol/L Normal 3.5-5.1 [facility] ([place]) Comment on above: Performed By: #### L IPID, CMP, GFR #### [place] [phone] Sodium [Moles/Vol] 140 mmol/L Normal 136-145 [facility] ([place] Comment on above: Performed By: #### L IPID, CMP, GFR #### [place] [id number] [place], [place] [address] Total Protein 7.9 G/dL Normal 6.4-8.2 [facility] ([place]) Comment on above: Performed By: #### L IPID, CMP, GFR #### [place] [id number] [place], [place] [address] Urea nitrogen [Mass/Vol] 23 mg/dL High 7-18 [facility] ([place]) Comment on above: Performed By: #### L IPID, CMP, GFR #### [address] [address] LABORATORYOrdered By: SYSTEM SYSTEM on 12-11-2022 Albumin BCP dye [Mass/Vol] 4.1 G/dL Invalid Interpretation Code 3.4 - 4.8 G/dL AO ADM SS Albumin/Globulin [Mass ratio] 1.1 {ratio} Invalid Interpretation Code 1.1 - 2.5 ratio AO ADM SS ALP [Catalytic activity/Vol] 89 U/L Invalid Interpretation Code 40 - 135 U/L AO ADM SS ALT With P-5'-P [Catalytic activity/Vol] 26 U/L Invalid Interpretation Code 14 - 59 U/L AO ADM SS AST With P-5'-P [Catalytic activity/Vol] 18 U/L Invalid Interpretation Code 10 - 40 U/L AO ADM SS Bilirubin [Mass/Vol] 0.5 mg/dL Invalid Interpretation Code 0.2 - 1.0 mg/dL AO ADM SS Comment on above: Interpretive Data: U se of this assay is not recommended for patients undergoing treatment with eltrombopag due to the potential for falsely elevated results. Calcium [Mass/Vol] 9.2 mg/dL Invalid Interpretation Code 8.4 - 10.2 mg/dL AO ADM SS Chloride [Moles/Vol] 102 mmol/L Invalid Interpretation Code 98 - 107 mmol/L AO ADM SS CO2 [Moles/Vol] 27 mmol/L Invalid Interpretation Code 23 - 31 mmol/L AO ADM SS Creatinine [Mass/Vol] 1.03 mg/dL Invalid Interpretation Code 0.55 - 1.02 mg/dL AO ADM SS Electrolyte Balance 11.0 mEq/L Invalid Interpretation Code 4.0 - 15.0 mEq/L AO ADM SS GFR/1.73 sq M.predicted among blacks MDRD (S/P/Bld) [Vol rate/Area] 65 ml/min/1.73sqm Invalid Interpretation Code AO Chemistry S Comment on above: Interpretive Data: GFR Population mean for , Non- Americans Ages 20-29 = 116 mL/min/1.73 sq.m. Ages 30-39 = 107 mL/min/1.73 sq.m. Ages 40-49 = 99 mL/min/1.73 sq.m. Ages 50-59 = 93 mL/min/1.73 sq.m. Ages 60-69 = 85 mL/min/1.73 sq.m. Ages 70+ = 75 mL/min/1.73 sq.m. Chronic Kidney Disease: Less than 60 mL/min/1.73 square meters End Stage Renal Disease: Less than 15 mL/min/1.73 square meters GFR/1.73 sq M.predicted among non-blacks MDRD (S/P/Bld) [Vol rate/Area] 54 ml/min/1.73sqm Invalid Interpretation Code AO Chemistry S Comment on above: Interpretive Data: GFR Population mean for , Non- Americans Ages 20-29 = 116 mL/min/1.73 sq.m. Ages 30-39 = 107 mL/min/1.73 sq.m. Ages 40-49 = 99 mL/min/1.73 sq.m. Ages 50-59 = 93 mL/min/1.73 sq.m. Ages 60-69 = 85 mL/min/1.73 sq.m. Ages 70+ = 75 mL/min/1.73 sq.m. Chronic Kidney Disease: Less than 60 mL/min/1.73 square meters End Stage Renal Disease: Less than 15 mL/min/1.73 square meters Globulin 3.8 G/dL Invalid Interpretation Code AO ADM SS Glucose [Mass/Vol] 119 mg/dL Invalid Interpretation Code 80 - 115 mg/dL AO ADM SS Potassium [Moles/Vol] 4.7 mmol/L Invalid Interpretation Code 3.5 - 5.1 mmol/L AO ADM SS Protein [Mass/Vol] 7.9 G/dL Invalid Interpretation Code 6.4 - 8.2 G/dL AO ADM SS Sodium [Moles/Vol] 140 mmol/L Invalid Interpretation Code 136 - 145 mmol/L AO ADM SS Urea nitrogen [Mass/Vol] 23 mg/dL Invalid Interpretation Code 7 - 18 mg/dL AO ADM SS Urea nitrogen/Creatinine [Mass ratio] 22 ratio Invalid Interpretation Code 7 - 27 ratio AO ADM SS LABORATORYOrdered By: Litzy Ha on 12-11-2022 Cholesterol [Mass/Vol] 259 mg/dL Invalid Interpretation Code 0 - 200 mg/dL AO ADM SS Comment on above: Interpretive Data: C holesterol Reference Interval: Less than 200 Desirable 200-239 Borderline high risk 240 and above High risk Cholesterol in HDL [Mass/Vol] 43 mg/dL Invalid Interpretation Code 40 - 60 mg/dL AO ADM SS Cholesterol in LDL [Mass/Vol] 187 mg/dL Invalid Interpretation Code 0 - 130 mg/dL AO ADM SS Triglyceride [Mass/Vol] 147 mg/dL Invalid Interpretation Code 0 - 150 mg/dL AO ADM SS Comment on above: Interpretive Data: T riglyceride Reference Interval: Less than 150 Normal 150-199 Borderline high risk 200-499 High risk 500 or higher Very high risk LIPIDon 12-11-2022 Cholesterol [Mass/Vol] 259 mg/dL High 0-200 [facility] ([place]) Comment on above: Result Comment: Chol esterol Reference Interval: Less than 200 Desirable 200-239 Borderline high risk 240 and above High risk Performed By: #### L IPID, CMP, GFR #### [address] [address] Cholesterol in HDL [Mass/Vol] 43 mg/dL Normal 40-60 [facility] ([place]) Comment on above: Performed By: #### L IPID, CMP, GFR #### [address] [address] Cholesterol in LDL [Mass/Vol] 187 mg/dL High 0-130 [facility] ([place]) Comment on above: Performed By: #### L IPID, CMP, GFR #### [address] [address] Triglyceride [Mass/Vol] 147 mg/dL Normal 0-150 [facility] ([place]) Comment on above: Result Comment: Trig lyceride Reference Interval: Less than 150 Normal 150-199 Borderline high risk 200-499 High risk 500 or higher Very high risk Performed By: #### L IPID, CMP, GFR #### [place] [id number] [place], [place] [address] Encounters Encounter Date Encounter Type Care Provider Facility Start: 11-24-2024 ambulatory [facility] Facility: [facility] Start: 11-12-2024 ambulatory [facility] Facility: [facility] Start: 01-14-2024 End: 01-14-2024 ambulatory Greg LONG Facility:[facility] Start: 11-28-2023 End: 11-28-2023 ambulatory [facility] Facility:[facility] Start: 11-24-2023 End: 11-24-2023 ambulatory Greg LONG Facility:[facility] Start: 11-19-2023 End: 11-19-2023 ambulatory Greg LONG Facility:[facility] Start: 11-17-2023 End: 11-17-2023 ambulatory [facility] Facility:[facility] Start: 07-31-2023 End: 07-31-2023 ambulatory CARLOTA FANG APRN-HEAT TREAT FURNACE OPERATOR Facility:A Start: 07-31-2023 End: 07-31-2023 Patient encounter procedure CARLOTA FANG APRN-HEAT TREAT FURNACE OPERATOR [facility] Start: 01-28-2023 End: 01-28-2023 ambulatory CARLOTA FANG APRN-HEAT TREAT FURNACE OPERATOR Facility:[facility] Start: 01-28-2023 End: 01-28-2023 Patient encounter procedure CARLOTA FANG [employer] HR DEVELOPER-HEAT TREAT FURNACE OPERATOR [facility] Start: 01-08-2023 End: 01-08-[address] RAIS العراقي DO Facility:[facility] Start: 12-27-2022 End: 12-27-[address] ARIS العراقي DO Facility:[facility] Start: 12-27-2022 End: 12-27-[address] ARIS العراقي DO [facility] Start: 12-11-2022 End: 12-11-[address] ARIS العراقي DO Facility:[facility] Start: 12-11-2022 End: 12-11-[address] ARIS العراقي DO [facility] Immunizations Immunization Date Immunization Notes Care Provider [facility] 11-19-2021 influenza virus vaccine, unspecified formulation DR ARIS العراقي DO [facility] 11-19-2021 SARS-CoV-2 (CV19)mRNA-[address] ARIS العراقي DO [facility] 06-05-2021 SARS-CoV-2 (COVID-19 ) mRNA-[address] ARIS العراقي DO [facility] 03-06-[address] ARIS العراقي DO [facility] 01-09-2021 SARS-CoV-2 (COVID-19 ) mRNA-[address] ARIS العراقي DO [facility] 11-27-2020 influenza virus vaccine, unspecified formulation DR ARIS العراقي DO [facility] 11-27-[address] ARIS العراقي DO [facility] 05-03-2020 SARS-CoV-2 (COVID-19 ) mRNA-[address] ARIS العراقي DO [facility] 11-15-2018 influenza virus vaccine, unspecified formulation DR ARIS العراقي DO [facility] Payers Date Payer Category Payer Self-pay 2022 Private Health Insurance [id number] 1955 Unknown [id number] 2.16.8 [id number] 1955 Unknown [id number] 2.16.8 [id number] 1955 Unknown [id number] 2.16.8 [id number] 1955 Unknown [id number] 2.16.8 [id number] 1955 Unknown [id number] 2.16.8 [id number] Unknown [id number] 2.16.8 [id number] Unknown [id number] 2.16.8 [id number] Unknown [id number] 2.16.8 [id number] Unknown [id number] 2.16.8 [id number] Unknown [id number] 2.16.8 [id number] Unknown [id number] 2.16.8 [id number] Unknown [id number] 2.16.8 [id number] Social History Date Type Detail Facility Start: 12-05-2022 Tobacco smoking status Never s moked tobacco (finding) [facility] Sex Assigned At Female [facility] Clinical Note 07-31-2023 Note Date & Type Note Facility 07-31-2023 Note ORIGINAL FROM: [facility] [address] [place] [address] PROCEDURE FOR: DANIKA OLIVIA [address] [place] [address] Home: PID#: [id number] Exam#: [id number] : 1955 Age: 67 TO: CARLOTA FANG [employer] HR DEVELOPER HEAT TREAT FURNACE OPERATOR [address] [place], [place] [address] Fax: NO FAX EXAMINATION: ULTRASOUND OF THE RIGHT BREAST 07/31/2023 10:15 am TECHNIQUE: Color flow and real-time targeted ultrasound of the right breast were performed. COMPARISON: 01/28/2023 HISTORY: ORDERING SYSTEM PROVIDED HISTORY: Reason for Exam: 6 mo f/u right breast mass FINDINGS: Right breast hypoechoic mass is not significantly changed in size or morphology measuring approximately 6 x 4 x 4 mm. IMPRESSION: No change in the right breast mass, most likely a complex cyst, follow-up ultrasound in 6 months is recommended to document stability. Patient is due for bilateral mammography in December of 2023 BIRADS: MAMMOGRAM BI-RADS: 3: Probably benign RECALL: 6 month follow-up RECALL TYPE: US LETTER SENT: Probably Benign BI-RADS 3 Interpreted by: Zafar Falk MD Preliminary Report By: Zafar Falk MD Electronically signed By Zafar Falk MD Dictated Date: 07/31/2023 11:06:31 AM Prelim Date: 07/31/2023 11:09:06 AM Sign Date: 07/31/2023 11:09:06 AM Ordering Provider: CARLOTA FANG CLINICAL: 6 MONTHS FOLLOW-UP RIIGHT BREAST CYST 10:00. Can Striper: DIONICIO HANSEN RDMS letter sent: Probably Benign BI-RADS 3 Ultrasound BI-RADS: 3 Probably benign [facility] Evaluation + Plan note 06-13-2023 LaboratoryRadiology Note Date & Type Note Facility 06-13-2023 Evaluation + Plan note Future Scheduled TestsThyroid Stimulating Hormone 06/13/23A1C Hemoglobin 06/13/23Complete Blood Count 06/13/23Lipid Profile 06/13/23Complete Metabolic Panel 06/13/23MA Mammo Diagnostic Bilateral w/Isaac 01/30/24US Breast Right Limited 01/30/24 [facility] Evaluation + Plan note Radiology Note Date & Type Note Facility Evaluation + Plan note Future Appointments Appointment Date:06/06/2023 08:00:00 AM Scheduled Provider:ARIS العراقي DO Location:[facility] Appointment Type:PC OV Future Scheduled TestsMA Mammo Screening Bilateral w/ Isaac 12/05/22 [facility] Evaluation + Plan note Laboratory Note Date & Type Note Facility Evaluation + Plan note Future Appointments Appointment Date:06/06/2023 08:00:00 AM Scheduled Provider:ARIS العراقي DO Location:[facility] Appointment Type:PC OV Future Scheduled TestsThyroid Stimulating Hormone 06/13/23A1C Hemoglobin 06/13/23Complete Blood Count 06/13/23Lipid Profile 06/13/23Complete Metabolic Panel 06/13/23 [facility] Evaluation + Plan note LaboratoryRadiology Note Date & Type Note Facility Evaluation + Plan note Future Appointments Appointment Date:06/06/2023 08:00:00 AM Scheduled Provider:ARIS العراقي DO Location:[facility] Appointment Type:PC OV Appointment Date:07/31/2023 10:30:00 AM Scheduled Provider: Location:[facility] Appointment Type:US Breast Right Limited Appointment Date:07/31/2023 11:00:00 AM Scheduled Provider:CARLOTA FANG Location:[facility] Appointment Type:BS OV Follow Up w/ Imaging Future Scheduled TestsThyroid Stimulating Hormone 06/13/23A1C Hemoglobin 06/13/23Complete Blood Count 06/13/23Lipid Profile 06/13/23Complete Metabolic Panel 06/13/23US Breast Right Limited 07/31/23 [facility] Hospital course Narrative Note Date & Type Note Facility Hospital course Narrative No data available for this section [facility] Hospital Discharge instructions Note Date & Type Note Facility Hospital Discharge instructions No data available for this section [facility] Progress note Note Date & Type Note Facility Progress note No data available for this section [facility] Summary Purpose Family History No Family History Records Found Advance Directives No Advanced Directives Records FoundNo Advanced Directives Records Found Additional Source Comments Patient Care team informatio n (unrecognized section and content) Care Team Personnel Name: ARIS العراقي DO Position: P4 Physician - Primary Care Member Role: Primary Care Physician Address: Address: [address] [place] [address] Care Team Related Persons Name: ADDISON OLIVIA Address: Home [address] [place] [phone] [place] Address: Temporary [address] [place] [phone] Care Team Personnel Name: ARIS العارقي DO Position: P4 Physician - Primary Care Member Role: Primary Care Physician Address: Address: [address] [place] [phone] [place] [address] Care Team Related Persons Name: ADDISON OLIVIA Address: Home [address] [place] [phone] [place] Address: Temporary [address] [place] [phone] Care Team Personnel Name: ARIS العراقي DO Position: P4 Physician - Primary Care Member Role: Primary Care Physician Address: Address: [address] [place] [id number] Care Team Related Persons Name: ADDISON OLIVIA Address: Home [address] [place] [phone] [place] Address: Temporary [address] [place] [address] [phone] Care Team Personnel Name: ARIS العراقي DO Position: P4 Physician - Primary Care Member Role: Primary Care Physician Address: Address: [address] [place] [phone] [place] [address] Care Team Related Persons Name: ADDISON OLIVIA Address: Home [address] [place] [phone] Address: Temporary [address] [place] [address] [phone] INFORMATION SOURCE (unrecogn ized section and content) DATE CREATED AUTHOR 08/03/2023 [facility] ([place]) DATE CREATED AUTHOR AUTHOR'S BRIDGETT ATION 11/06/2024 [facility] FOR RECORDS PERTAINING TO PATIENTS WHO ARE OR HAVE BEEN ENROLLED IN A CHEMICAL DEPENDENCY/SUBSTANCEABUSE PROGRAM, SOME INFORMATION MAY BE OMITTED. This clinical summary was aggregated from multiple sources. Caution should be exercised in using it in the provision of clinical care. This summary normalizes information from multiple sources, and as a consequence, information in this document may materially change the coding, format and clinical context of patient data. In addition, data may be omitted in some cases. CLINICAL DECISIONS SHOULD BE BASED ON THE PRIMARY CLINICAL RECORDS. [facility] [employer] [facility]. provides no warranty or guarantee of the accuracy or completeness of information in this document.
== END | disposition home or self-care (01) ==
LOC: CT 06:10
PROVIDERS: PCP Physician Assistant; Referring Provider Podiatrist Foot & Ankle Surgery; Visit Provider Podiatrist Foot & Ankle Surgery
DX: T84.84XA Pain due to internal orthopedic prosthetic devices, implants and grafts, initial encounter (principal); M79.605 Pain in left leg
CPT/HCPCS: 73700

== ENCOUNTER → 2024-11-24 | Outpatient (CLI) | payer MEDICARE, SELFPAY ==
--- NOTE | 2024-11-24 12:18 | NEURO ---
NCS and/or EMG Patient Report Ordering Doctor: Eldon Merritt DATE OF SERVICE: 11/24/24 Jo Ann presents with complaints of numbness and tingling in the dorsum of the left foot. She reports a history of left ankle fracture in October 2023. Electrodiagnostic findings: Left peroneal motor nerve demonstrates normal distal latency, amplitude and conduction velocity. Right peroneal motor response within normal limits. Tibial motor response within normal limits bilaterally. Normal tibial and peroneal F?waves. Prolonged H?reflex bilaterally. Sensory responses are within normal limits. Needle EMG testing was performed in the lower limbs. All muscles tested showed no evidence of denervation with normal motor unit action potentials. Electrodiagnostic assessment:: This is a normal electrodiagnostic study of the lower limbs. There is no electrodiagnostic evidence for peripheral neuropathy or lumbosacral radiculopathy. Multi Select Codes Neurology Neurology Interp Codes: 96451-57 Musc test done w/n test comp (interp) (2) and 72733-23 Nrv cndj test 11-12 studies (interp)
--- NOTE | 2024-11-24 12:18 | NEURO ---
NCS and/or EMG Patient Report Ordering Doctor: Eldon Merritt DATE OF SERVICE: 11/24/24 Jo Ann presents with complaints of numbness and tingling in the dorsum of the left foot. She reports a history of left ankle fracture in October 2023. Electrodiagnostic findings: Left peroneal motor nerve demonstrates normal distal latency, amplitude and conduction velocity. Right peroneal motor response within normal limits. Tibial motor response within normal limits bilaterally. Normal tibial and peroneal F?waves. Prolonged H?reflex bilaterally. Sensory responses are within normal limits. Needle EMG testing was performed in the lower limbs. All muscles tested showed no evidence of denervation with normal motor unit action potentials. Electrodiagnostic assessment:: This is a normal electrodiagnostic study of the lower limbs. There is no electrodiagnostic evidence for peripheral neuropathy or lumbosacral radiculopathy. Multi Select Codes Neurology Neurology Interp Codes: 78203-78 Musc test done w/n test comp (interp) (2) and 32934-50 Nrv cndj test 11-12 studies (interp)
== END | disposition home or self-care (01) ==
LOC: PSN 08:23
PROVIDERS: PCP Physician Assistant; Referring Provider Podiatrist Foot & Ankle Surgery; Visit Provider Podiatrist Foot & Ankle Surgery
DX: M79.605 Pain in left leg (principal); M79.604 Pain in right leg; M79.2 Neuralgia and neuritis, unspecified
CPT/HCPCS: 95886; 95912

== ENCOUNTER 2025-01-25 10:30 | Outpatient (RCR) | payer MEDICARE, SELFPAY ==
--- NOTE | 2025-01-25 11:22 | HP.PTDCSUM_ITS ---
Discharge Summary D/C summary: It has been my pleasure to treat DANIKA ALONZO referred by Dr. Cindy Blood MD, with the diagnosis of L ankle bimalleolar fracture for a total of 12 visit(s). Discharge Date: 01/25/25 Please see the following information for a summary of their discharge status. Subjective Subjective: Better slowly but surely. It is bending now. Is trying to do more. Doing HEP regularly. Pain on daily basis is 3 at rest and u to 5/10 with walk ing alot or doing a lot of steps. Decorating for linette to [facility] made her sore. Took it easy the next day. Sleep is OK. Activities; avoiding ladder. Pain R mdial foot pain: Pain Intensity (Out of 10): 3 Overall Improvement % Improvement: 80 Objective Objective/Function: walking without antalgia today, steps reciprocally with one rail. DF ROM L 2 degrees and symmetrical with R, Good othr motions at ankle and 4/5 strtnght except eversion 4-. Goals Goal 1:: walkk 1 mil with without pain or antalgia Goal Progress: Goal Met Goal 2:: 2 degrees DF, full PF without painful tight feeling Goal Progress: Goal Met Goal 3:: Pt feel 75% better in overall ankle pain and funciton Goal Progress: Goal Met Goal 4:: I appropriate HEP to limit future problems. Goal Progress: Goal Met Goal 5:: up and down steps reciprocally with one rail without pain or hesitation Goal Progress: Goal Met Goal 6:: LEFS score 50 Goal Progress: Goal Met Plan Plan: d/c to HEP D/C Information Discharge Comments: To doctor next week and will continue via HEP. Doing excellent, pain still 3/10 at baseling but funcitonally doing well. d/c sentence: If there are questions or concerns regarding this patient's physical therapy, please feel free to call me at [phone]. Thank you for the referral of this patient. Sincerely, Daniel Ashby, DPT, OCS, CSCS Balance/Gait/Functional tests Balance/Special Test Scores Functional Gait Assessment Score: 27 % Disability: 10.0000 Lower Extremity Functional Score: 64 Improvement % Improvement: 80
== END 2025-01-25 13:59 | disposition home or self-care (01) ==
LOC: PT 10:30
PROVIDERS: PCP Physician Assistant; Referring Provider Orthopaedic Surgery; Visit Provider Orthopaedic Surgery
DX: S82.842D Displaced bimalleolar fracture of left lower leg, subsequent encounter for closed fracture with routine healing (principal)
CPT/HCPCS: 97110; 97140; 97161; 97164; 97530